=== PATIENT | female | born 1960 | race Hispanic/Latino ===

== ENCOUNTER → 2018-05-06 | Day surgery (SDC) | payer BC ==
[~2018-05-06] MED LIST: FENTANYL CITRATE/PF 100MCG/2 ML INJ ONE; HYOSCYAMINE SULFATE 0.5 MG/ML AMP ONE; LIDOCAINE HCL 2% LOCAL INJ 5 ML SDV VIAL INJ ONE; MIDAZOLAM HCL 2 MG/2 ML VIAL ONE; PROPOFOL IV EMULSION 10 MG/ML 50 ML VIAL ONE; SERTRALINE HCL100 MG PO
--- NOTE | 2018-05-06 16:44 | Operative Report ---
DATE OF PROCEDURE: May 06, 2018 REFERRING PHYSICIAN: Dr. Jeffry Otero. PROCEDURES PERFORMED: Esophagogastroduodenoscopy with biopsies and a colonoscopy with polypectomy. INDICATIONS FOR ESOPHAGOGASTRODUODENOSCOPY: Upper abdominal pain. INDICATIONS FOR COLONOSCOPY: Colorectal cancer screening. Lower abdominal pain. MEDICATION: Patient was done under MAC. Please see anesthesiologist's note. PROCEDURE: With patient in the left lateral decubitus position, the flexible fiberoptic Olympus gastroscope was introduced into the esophagus under direct visualization without any difficulty. There was some patchy erythema noted in distal esophagus. The GE junction was somewhat raised and friable and that was biopsied. The scope was then advanced with ease into the stomach traversing a small sliding hiatal hernia. The mucosa overlying the antrum and the body revealed some patchy erythema and low-grade edema and biopsies were obtained and sent to stain for H. pylori. Minute hyperplastic appearing gastric polyps were noted. Two were partially excised with cold biopsy forceps. The pylorus was of normal contour and shape. Was intubated with ease and the scope was advanced all the way to the 2nd portion of the duodenum. The scope was then withdrawn slowly. Mucosa overlying the duodenal bulb revealed some patchy intense erythema. The mucosa overlying the 2nd portion of the duodenum grossly appeared to be within normal limits. The scope was then withdrawn back into the stomach and retroflexed. Mucosa overlying the fundus and the cardia appeared to be within normal limits. The scope was then straightened out. It was subsequently withdrawn. Patient tolerated procedure well. IMPRESSION: 1. Distal esophagitis, mild. 2. Gastroesophageal junction somewhat raised and friable, biopsied. 3. Small sliding hiatal hernia. 4. Gastritis biopsied. Biopsy sent stain for H. pylori. 5. Gastric polyps, minute, hyperplastic appearing, partially excised with cold biopsy forceps. 6. Duodenitis. PLAN: Follow up histology. Initiate Protonix 40 mg 1 p.o. q.a.m. a.c. PROCEDURE: Patient was then turned around and after adequate lubrication of the anal canal a flexible fiberoptic Olympus colonoscope was inserted into the rectum with ease and advanced all the way to the cecum. Mucosa overlying the cecum, ascending colon appeared to be within normal limits. Diverticular disease was noted to involve the transverse colon as well as the left colon. Two polyps were snared, 1 polyp was hot biopsied from the sigmoid colon. Diverticular disease also was encountered, as mentioned, in the descending and the sigmoid. There was some patchy intense erythema noted in the sigmoid colon and biopsies were obtained. One polyp was hot biopsied from the rectum. The scope was then retroflexed into the distal rectum and small internal hemorrhoids were noted, none of which was actively bleeding. The scope was then straightened out. It was subsequently withdrawn. Patient tolerated the procedure well. IMPRESSION 1. Diverticulosis. 2. Sigmoid colon polyps times 3, two snared and one hot biopsied. 3. Sigmoiditis, mild. Biopsies obtained. 4. Rectal polyp, hot biopsied. 5. Internal hemorrhoids, none actively bleeding. PLAN: Followup histology. Initiated high-fiber, low-fat diet. Initiate high-fiber supplement. Start Bentyl 10 mg one p.o. t.i.d. VSL#3 one p.o. daily. The patient will need a followup colonoscopy in 3 years. Job#: [id number] cc:JEFFRY OTERO DO
== END | disposition home or self-care (01) ==
LOC: OR 10:51
PROVIDERS: ATTEND Internal Medicine Gastroenterology
DX: K29.70 Gastritis, unspecified, without bleeding (principal); D12.5 Benign neoplasm of sigmoid colon; K62.1 Rectal polyp; K31.7 Polyp of stomach and duodenum; K52.9 Noninfective gastroenteritis and colitis, unspecified; K29.80 Duodenitis without bleeding; K20.9 Esophagitis, unspecified; K22.8 Other specified diseases of esophagus; K44.9 Diaphragmatic hernia without obstruction or gangrene; K57.30 Diverticulosis of large intestine without perforation or abscess without bleeding; K64.8 Other hemorrhoids; R03.0 Elevated blood-pressure reading, without diagnosis of hypertension; F32.9 Major depressive disorder, single episode, unspecified; F41.9 Anxiety disorder, unspecified; Z01.810 Encounter for preprocedural cardiovascular examination; Z68.38 Body mass index [BMI] 38.0-38.9, adult; Z80.0 Family history of malignant neoplasm of digestive organs
CPT/HCPCS: 43239; 45380; 45384; 45385; 93005; J1980; J2001; J2250; 45378

== ENCOUNTER → 2018-09-05 | Outpatient (CLI) | payer BC ==
[~2018-09-05] MED LIST changes: -FENTANYL CITRATE/PF 100MCG/2 ML INJ ONE; -HYOSCYAMINE SULFATE 0.5 MG/ML AMP ONE; -LIDOCAINE HCL 2% LOCAL INJ 5 ML SDV VIAL INJ ONE; -MIDAZOLAM HCL 2 MG/2 ML VIAL ONE; -PROPOFOL IV EMULSION 10 MG/ML 50 ML VIAL ONE
--- NOTE | 2018-09-07 08:32 | Diagnostic Imaging Report ---
#[id number] - MGSCRBIL #BILATERAL DIGITAL SCREENING MAMMOGRAM WITH CAD: 09/05/2018 CLINICAL: Routine screening. Comparison is made to exams dated: 07/29/2017 mammogram and 08/02/2015 mammogram - [facility]. Current study contains 4 films. There are scattered fibroglandular elements in both breasts. Current study was also evaluated with a Computer Aided Detection (CAD) system. There are benign nodules in both breasts. There also is a benign calcification in the right breast. Additionally there is a biopsy clip in the right breast. No significant masses, calcifications, or other findings are seen in either breast. There has been no significant interval change. IMPRESSION: BENIGN There is no mammographic evidence of malignancy. A 1 year screening mammogram is recommended. The patient will be notified by letter of the results. Luis M last/julia:09/06/2018 15:38:16 Sr. Manager Corporate Communications: Lidia SOTO(R)(M), [facility] letter sent: Compared to Prior B9 Mammogram BI-RADS: 2 Benign
== END ==
LOC: MAMMO 16:14
PROVIDERS: ATTEND Surgery
DX: Z12.31 Encounter for screening mammogram for malignant neoplasm of breast (principal)
CPT/HCPCS: 77067

== ENCOUNTER 2018-10-29 19:43 | Inpatient (IN) | payer BC ==
[~2018-10-29] VITALS: Ht 154.9 cm; Wt 93.9 kg
[2018-10-29] MEDS ORDERED: ACETAMINOPHEN 1000 MG/100 ML IV STA (20:12)
[2018-10-29] MEDS ORDERED: SODIUM CHLORIDE 0.9% 1000ML 1,000 ML IV ONE (20:15)
[2018-10-29] MEDS ORDERED: DIATRIZOATE MEGL/DIATRIZOA SOD 30 ML BTL PO ONE (20:22)
[2018-10-29 20:48] LABS: BASOPHILS # (AUTO) 0.1 (0.0-0.1); BASOPHILS % 0.4 % (0.0-1.0); EOSINOPHILS # (AUTO) 0.1 (0.0-0.4); EOSINOPHILS % 0.7 % (0.0-6.0); HEMOGLOBIN 12.6 g/dL (12.0-16.0); LYMPHOCYTES # (AUTO) 3.8 (1.0-3.2); MEAN CORPUSCULAR HEMOGLOBIN 30.3 pg (28-32); MEAN CORPUSCULAR HGB CONC 34.1 g/dL (31-35); MEAN CORPUSCULAR VOLUME 88.9 fL (81-99); MONOCYTES # (AUTO) 0.8 (0.2-0.8); MONOCYTES % 3.9 % (4.4-11.3); NEUTROPHILS # (AUTO) 16.3 (2.1-6.9); NEUTROPHILS % 76.6 % (38.7-80.0); PLATELET COUNT 462 x10e3/uL (140-360); RED BLOOD COUNT 4.16 x10e6/uL (3.6-5.1); RED CELL DISTRIBUTION WIDTH 13.2 % (11.7-14.4)
[2018-10-29 21:01] LABS: LEUKOCYTE ESTERASE ,URINE TRACE (NEGATIVE)
[2018-10-29 21:02] LABS: BILIRUBIN,URINE NEGATIVE (NEGATIVE); KETONES,URINE NEGATIVE (NEGATIVE); NITRITE,URINE NEGATIVE (NEGATIVE); PROTEIN,URINE DIPSTICK TRACE (NEGATIVE); URINE UROBILINOGEN 0.2 mg/dL (0.2 - 1)
[2018-10-29] MEDS ORDERED: METRONIDAZOLE 500MG/NS 100ML 100 ML IV STA (21:07)
[2018-10-29] MEDS ORDERED: LEVOFLOXACIN 500MG/D5W 100ML 100 ML IV STA (21:07)
[2018-10-29 21:08] LABS: ALANINE AMINOTRANSFERASE 18 IU/L (0-55); ALBUMIN 3.5 g/dL (3.5-5.0); ALBUMIN/GLOBULIN RATIO 0.8 (0.8-2.0); ALKALINE PHOSPHATASE 162 IU/L (40-150); ANION GAP 13.4 mmol/L (8-16); BACTERIA,URINE MANY /HPF; BLOOD UREA NITROGEN 13 mg/dL (7-26); BUN/CREATININE RATIO 14 (6-25); CARBON DIOXIDE 25 mmol/L (22-29); CHLORIDE 98 mmol/L (98-107); CLARITY,URINE HAZY (CLEAR); COLOR,URINE YELLOW (YELLOW); CREATININE, SERUM 0.92 mg/dL (0.57-1.11); EPITHELIAL CELLS,URINE MANY /LPF; EST GLOMERULAR FILTRATION RATE > 60 ML/MIN (60-); GLUCOSE 127 mg/dL (74-118); MUCUS,URINE MANY (RARE); POTASSIUM 3.4 mmol/L (3.5-5.1); RBC,URINE 21-50 /HPF (0-5); SODIUM 133 mmol/L (136-145); WBC,URINE (MAN) 0-5 /HPF (0-5)
[2018-10-29] MEDS ORDERED: ONDANSETRON HCL INJ 2MG/ML 2ML 2 MG/ML VIAL IV STA (21:28)
[2018-10-29] MEDS ORDERED: MORPHINE SULFATE INJ 4 MG/ML INJ 1ML IV ONE (21:30)
[2018-10-29] MEDS ORDERED: SODIUM CHLORIDE 0.9% 50ML 50 ML ONE (22:06)
[2018-10-29] MEDS ORDERED: IOPAMIDOL 370 MG/ML 200 ML INFUS..BTL INJ ONE (22:06)
--- NOTE | 2018-10-29 22:37 | Diagnostic Imaging Report ---
EXAM: CT ABDOMEN AND PELVIS with IV CONTRAST DATE: 10/29/2018 8:12 PM Time stamp on Exam: 2159 hours INDICATION: Abdominal pain, fever COMPARISON: None TECHNIQUE: The abdomen and pelvis were scanned using a multidetector helical scanner. Coronal and sagittal reformations were obtained. Dose modulation, iterative reconstruction, and/or weight based adjustment of the mA/kV was utilized to reduce the radiation dose to as low as reasonably achievable. Routine protocol performed. IV Contrast: 100 cc Isovue-370 Oral Contrast: Gastrografin FINDINGS: LOWER THORAX: No consolidations LIVER: No masses BILIARY: The gallbladder is unremarkable. No ductal dilation. SPLEEN: No masses PANCREAS: No masses ADRENALS: No nodules KIDNEYS: Symmetric perfusion. No enhancing masses. No hydronephrosis. GI TRACT: Marked sigmoid colon diverticulosis with focal wall thickening adjacent to the left adnexal mass and uterine fundus. Sigmoid colon diverticulosis. Normal appendix. VESSELS: Unremarkable PERITONEUM/RETROPERITONEUM: No free air or fluid LYMPH NODES: Multiple pelvic and retroperitoneal lymph nodes that are predominantly subcentimeter, however there is a larger lymph node along the right external iliac chain measuring 1.7 cm in transverse diameter (series 2, image 56). REPRODUCTIVE ORGANS: Within the left adnexa there is a 7.6 x 3.6 cm multiloculated cystic mass with foci of air. Abnormal thickening of the endometrium to 4.5 cm containing fluid and air. BLADDER: Unremarkable SOFT TISSUES: Unremarkable BONES: No suspicious bone lesions. IMPRESSION: Within the left adnexa there is a 7.6 x 3.6 m multiloculated cystic mass containing air. The endometrium is thickened to 4.5 cm and contains fluid and air. Abutting both the left adnexal mass and the fundus of the uterus is a thickened area of sigmoid colon with severe diverticulosis. Adjacent left pelvic adenopathy. With the provided history of diverticulitis last July, the above findings most likely represent complication of sigmoid colon diverticulitis with fistulization/abscess involving the left ovary and uterus. However, without prior images for comparison, a primary left ovarian or endometrial tumor is in the differential. Signed by: Dr. Berenice Walker M.D. on 10/29/2018 10:34 PM
[2018-10-29] MEDS ORDERED: CEFTRIAXONE SOD 2 GM/NS 100 ML 100 ML IV SCH ×2 (23:15)
[2018-10-29] MEDS ORDERED: D5.45%NS/KCL 20MEQ 1,000 ML IV SCH (23:18)
[2018-10-29] MEDS ORDERED: MORPHINE SULFATE 2 MG/ML SYR 1ML IV PRN (23:30)
[2018-10-29] MEDS ORDERED: ONDANSETRON HCL INJ 2MG/ML 2ML 2 MG/ML VIAL IV PRN (23:30)
[2018-10-29] MEDS ORDERED: ACETAMINOPHEN 1000 MG/100 ML IV PRN (23:30)
[2018-10-29] MEDS ORDERED: LACTATED RINGER'S 1,000 ML INJ SCH (23:30)
[2018-10-29] MEDS ORDERED: CEFTRIAXONE SOD 2 GM VIAL ONE (23:53)
[2018-10-29] MEDS ORDERED: SODIUM CHLORIDE 0.9% 100 ML ONE (23:56)
[2018-10-30] MEDS ORDERED: METRONIDAZOLE 500MG/NS 100ML 100 ML IV SCH
[2018-10-30] MEDS: CEFTRIAXONE SOD 2 GM/NS 100 ML 100 ML IV SCH ×2 (00:05→23:30)
[2018-10-30] MEDS: METRONIDAZOLE 500MG/NS 100ML IV SCH ×2 (06:29→14:18)
--- NOTE | 2018-10-30 07:05 | NUR ---
REPORT RECEIVED FROM Travis SABILLON RN.
[2018-10-30] MEDS ORDERED: PANTOPRAZOLE SO40 MG PO (07:08)
[2018-10-30] MEDS ORDERED: DICYCLOMINE HCL10 MG PO (07:08)
[2018-10-30 07:15] LABS: BASOPHILS # (AUTO) 0.1 (0.0-0.1); BASOPHILS % 0.3 % (0.0-1.0); EOSINOPHILS # (AUTO) 0.2 (0.0-0.4); HEMATOCRIT 30.5 % (34.2-44.1); LYMPHOCYTES % 23.4 % (18.0-39.1); MEAN CORPUSCULAR HEMOGLOBIN 31.6 pg (28-32); MEAN CORPUSCULAR HGB CONC 36.1 g/dL (31-35); MEAN CORPUSCULAR VOLUME 87.6 fL (81-99); MONOCYTES # (AUTO) 0.9 (0.2-0.8); NEUTROPHILS % 69.8 % (38.7-80.0); PLATELET COUNT 332 x10e3/uL (140-360); RED BLOOD COUNT 3.48 x10e6/uL (3.6-5.1); RED CELL DISTRIBUTION WIDTH 13.4 % (11.7-14.4)
--- NOTE | 2018-10-30 07:36 | NUR ---
UNABLE TO INITIATE SCD/VTE PROPHYLAXIS, NO MACHINE AVAILABLE
[2018-10-30 07:37] LABS: ALANINE AMINOTRANSFERASE 15 IU/L (0-55); ALBUMIN 2.9 g/dL (3.5-5.0); ALBUMIN/GLOBULIN RATIO 0.7 (0.8-2.0); ALKALINE PHOSPHATASE 127 IU/L (40-150); ANION GAP 10.8 mmol/L (8-16); BLOOD UREA NITROGEN 9 mg/dL (7-26); BUN/CREATININE RATIO 13 (6-25); CALCIUM 8.7 mg/dL (8.4-10.2); CARBON DIOXIDE 25 mmol/L (22-29); CHLORIDE 105 mmol/L (98-107); CREATININE, SERUM 0.71 mg/dL (0.57-1.11); EST GLOMERULAR FILTRATION RATE > 60 ML/MIN (60-); GLUCOSE 109 mg/dL (74-118); POTASSIUM 3.8 mmol/L (3.5-5.1); SODIUM 137 mmol/L (136-145)
--- NOTE | 2018-10-30 08:00 | NUR ---
DR. BROOKS AT BEDSIDE.
--- NOTE | 2018-10-30 08:30 | NUR ---
BLE KNEE HIGH SCD'S INITIATED
--- NOTE | 2018-10-30 09:06 | Consultation ---
DATE OF CONSULTATION: October 30, 2018 REASON FOR CONSULTATION: Diverticulitis. The patient is a very pleasant, 58-year-old female who developed yesterday severe pain located in the lower abdomen, mainly in the area of the left lower quadrant where it has remained localized. This is associated with fever. The pain does not radiate. She denies any rectal bleeding, hematochezia. She had a colonoscopy last year which was a screening type of colonoscopy. From what she can tell, there was no evidence of malignancy or any other problems. In the past, she has a known case of diverticulosis with previous diverticular attacks that have not required hospitalization. This is the 1st hospitalization. 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 There is a pelvic abscess that involves, also, the left ovary. Since the performance of the CT scan was done with oral contrast, she has noted drainage of a purulent liquid coming from her vagina. Previous surgeries include an open heart procedure for repair of an atrioseptal defect repaired successfully with autogenous tissue. The patient since the surgery denies any chest pain or shortness of breath. She physically is doing well. PAST MEDICAL HISTORY: Unremarkable. ALLERGIES: SHE HAS NO KNOWN ALLERGIES. MEDICATIONS: She is currently taking no medications. SOCIAL HISTORY: She does not drink or smoke. REVIEW OF SYSTEMS: Significant for what has already been stated. PHYSICAL EXAMINATION GENERAL: A 58-year-old female who complains of left lower quadrant pain. She lays quietly in bed. VITALS: Her admission temperature was 101, now 98.4, with stable vital signs. HEAD, EYES, EARS, NOSE AND THROAT: Examination reveals no acute process. LUNGS: Clear. HEART: Regular sinus rhythm. ABDOMEN: Tenderness in the left lower quadrant with deep rebound. Bowel sounds are present. There is also some mild tenderness on the right lower side. The upper quadrants are soft. GENITOURINARY: Examination of the vaginal introitus reveals purulent discharge coming from the vagina. RECTAL: Examination reveals an empty vault, no blood. EXTREMITIES: No clubbing, cyanosis or edema. NEUROLOGIC: Examination is nonfocal. LABS: Admission WBC is 21,000. Admission chemistries are unremarkable. Admission urinalysis revealed 3+ blood. The CT scan results have already been discussed. 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 PLAN: The plan is to continue hydration and intravenous antibiotics, then proceed with exploratory laparotomy and colon resection. Most likely, she will need a colostomy. Dr. Armstrong from gynecology has been consulted and will be seeing the patient from a gynecological point of view. At this point, I believe that the main problem here is a general surgical one, namely secondary involvement of the uterus by the inflammatory process. We will have the patient evaluated by internal medicine and then if everybody is in agreement will proceed with planned surgery tomorrow. This has been discussed in detail with the patient and her , and they all agree with the plan. ROBSON BROOKS MD Job#: [id number]
--- NOTE | 2018-10-30 09:20 | Diagnostic Imaging Report ---
EXAMINATION: PA and lateral views of the chest. COMPARISON: None CLINICAL HISTORY: History of diverticulitis, open heart surgery DISCUSSION: The lungs are well-inflated and without focal consolidation, pleural effusion, or pneumothorax. Sternotomy wires and mediastinal surgical clips. Normal heart size. No overt pulmonary edema. No acute osseous abnormality. Opacified bowel is noted in the upper abdomen on the lateral radiograph, from enteric contrast administration for prior CT examination 10/29/2018. IMPRESSION: Postsurgical mediastinum without acute cardiopulmonary abnormality. Signed by: Dr. Kavon Mcclendon M.D. on 10/30/2018 9:17 AM
--- NOTE | 2018-10-30 09:54 | NUR ---
Britton martinez in [facility] - 10/30/18 at 0956 by HARDIK PT TRANSFERRED FROM STRETCHER TO HOSPITAL BED, PT TOLERATED WITHOUT DIFFICULTY
[2018-10-30] MEDS: D5.45%NS/KCL 20MEQ 1,000 ML IV SCH ×2 (10:37→17:44)
--- NOTE | 2018-10-30 12:00 | NUR ---
PT TO THE FLOOR FROM ER.
[2018-10-30 12:25] VITALS: BP 120/67
[2018-10-30 12:30] VITALS: BP 120/67
[2018-10-30 15:50] VITALS: BP 125/78
[2018-10-30 20:00] VITALS: BP_SYST 123; BP_SYST 125; BP_DIAS 58; BP_DIAS 78
--- NOTE | 2018-10-30 20:00 | NUR ---
INITIAL ASSESSMENTS COMPLETE, PT IN BED, CALL LIGHT IN REACH, NO PAIN NOTED, NO DISTRESS NOTED, FAMILY AT BEDSIDE, PT STATE HAS DRAINAGE FROM VAGINAL FISTULA WHEN UP TO BATHROOM, YELLOWISH DISCHARGE, TOLD TO CALL FOR NEEDS, VS STABLE
[2018-10-30] MEDS ORDERED: MORPHINE SULFATE INJ 4 MG/ML INJ 1ML IV PRN (21:00)
[2018-10-30] MEDS: METRONIDAZOLE 500MG/NS 100ML 200 ML IV SCH (21:35)
--- NOTE | 2018-10-30 23:35 | Consultation ---
DATE OF CONSULTATION: October 30, 2018 HPI: Thank you very much for asking me to see this 58-year-old who has been complaining of left lower quadrant pain intermittently for the last month or so. However, yesterday, she noticed acute severe crampy pain in the left lower quadrant with no triggering or relieving factor and not referred to anywhere else in her body. She denied any nausea or vomiting and no bowel movement problems. Her last bowel movement actually was yesterday morning. She has been complaining of vaginal brownish discharge since yesterday; however, she had NovaSure 8 years ago and has not had any vaginal bleeding since. PAST MEDICAL HISTORY: Significant for diverticulitis and diverticulosis. DRUG ALLERGIES: NONE KNOWN. MEDICATIONS: She is currently on medication for diverticulitis including diet and oral medication since July. SOCIAL HISTORY: No social history of interest. FAMILY HISTORY: No family history of interest. REVIEW OF SYSTEMS: She denies any cardiovascular, respiratory, musculoskeletal, hematological, dermatological or psychiatric problems. PHYSICAL EXAMINATION VITAL SIGNS: Stable. CHEST: Clear to auscultation. HEART: Regular rate and rhythm. ABDOMEN: Soft and nontender. ASSESSMENT: Diverticulitis with possible colovaginal or colouterine fistula and possible involvement of the left ovary. PLAN: Patient will be admitted to the hospital for hydration and intravenous antibiotics. General surgery has seen the patient and will proceed with colon resection and colostomy as discussed between the general surgeon and the patient. I have discussed the case with general surgeon as well as the urologist and would proceed with placing the stents before doing the laparotomy tomorrow. Also, I would be available for hysterectomy, bilateral salpingo-oophorectomy in case needed during the exploratory laparotomy by the general surgeon. Once again, thank you very much for asking me to see this patient. Please do not hesitate to call me if I can be of any further help in the future. Job#: [id number] CF cc:JESS POTTER MD
[2018-10-31] VITALS (7 sets, daily range): BP systolic 109–133; BP diastolic 57–63
[2018-10-31] MEDS ORDERED: VSL#3 CAPSULE1 EACH PO (05:32)
[2018-10-31] MEDS: METRONIDAZOLE 500MG/NS 100ML 200 ML IV SCH ×3 (05:34→21:56)
--- NOTE | 2018-10-31 05:48 | NUR ---
PT UP TO SHOWER WITH ASSIST FROM FAMILY, VS STABLE
[2018-10-31] MEDS: D5.45%NS/KCL 20MEQ 1,000 ML IV SCH ×2 (08:30→14:35)
[2018-10-31] MEDS ORDERED: PNEUMOCOCCAL VACCINE POLYVALENT 23 MCG/0.5 ML VIAL IM SCH (09:00)
[2018-10-31] MEDS ORDERED: INFLUENZA VIRUS VAC SPLIT INJ 0.5 ML SYR IM SCH (09:00)
[2018-10-31] MEDS ORDERED: IOPAMIDOL 610MG/1ML 300 MG/ML VIAL IV ONE (09:22)
[2018-10-31] MEDS ORDERED: LEVOFLOXACIN 500MG/D5W 100ML 100 ML IV ONE (10:46)
--- NOTE | 2018-10-31 13:53 | Consultation ---
DATE OF CONSULTATION: October 31, 2018 INITIAL VISIT SERVICE: Urology. ATTENDING PHYSICIAN: Dr. Troy HISTORY OF PRESENT ILLNESS: This is a 58-year-old patient who presented with what appeared to be perforated diverticulum and a pelvic abscess. The patient is planned to have exploratory surgery and possible colostomy by general surgery. PAST MEDICAL HISTORY: Significant for diverticular disease of the colon. ALLERGIES TO MEDICATIONS: None. MEDICATIONS: See MAR. SOCIAL HISTORY: No use of alcohol, illicit drugs or tobacco. FAMILY HISTORY: Noncontributory. REVIEW OF SYSTEMS: Twelve systems reviewed. Abdominal pain in the left lower quadrant for several days. As far as is concerned, no significant history. PHYSICAL EXAMINATION GENERAL: Patient is alert and oriented. VITALS: Blood pressure 135/80. Pulse 88. Temperature 98.7. Respirations 18. HEAD: Symmetric. Eyes: Normal movement. NECK: No JVD. CHEST: Clear. HEART: Regular. ABDOMEN: Soft. There is some lower abdominal tenderness. EXTERNAL GENITALIA: Unremarkable. LOWER EXTREMITIES: Moves all. LABORATORY DATA: A CT scan of the abdomen and pelvis that was done suggests a multiloculated cystic mass in the adnexa on the left side. Endometrium is also thickened. Severe diverticular disease, possibly diverticulitis and abscess. White count 21.22, hemoglobin within normal limits. Urinalysis 21-30 white blood cells and a few red blood cells per high power field. IMPRESSION 1. Diverticular disease of the colon. 2. Possible abscess. 3. Pelvic mass. PLAN: The patient will need cystoscopy and placement of ureteral catheters to assist in the open surgery. Job#: [id number]
--- NOTE | 2018-10-31 13:59 | Operative Report ---
DATE OF PROCEDURE: October 31, 2018 SERVICE: Urology. ATTENDING PHYSICIAN: Dr. Sangeetha Troy PREOPERATIVE DIAGNOSES 1. Diverticulitis of the colon. 2. Pelvic mass. 3. Possible abscess. POSTOPERATIVE DIAGNOSIS: 1. Diverticulitis of the colon. 2. Pelvic mass. 3. Possible abscess. OPERATION PERFORMED 1. Cystoscopy, bilateral retrograde pyelograms under fluoroscopic control. 2. Placement of ureteral catheters bilaterally. 3. Pelvic examination under anesthesia. 4. Interpretation of x-ray done by me. 5. Supervision of fluoroscopy done by me. AGRONOMY INSTRUCTOR: None. ANESTHESIA: General. CLINICAL INDICATION NOTE: This is a 68-year-old patient who has diverticular disease of the colon and possible abscess as well as pelvic mass. She was brought for exploration by surgery. I am planning to place ureteral catheters and do retrograde. Procedure was discussed with the patient and family. Potential benefits explained as well as complications. DESCRIPTION OF PROCEDURE AND FINDINGS: After proper level of anesthesia was achieved, the patient was placed in lithotomy position, prepped and draped in a sterile fashion. Urethra inspected and is unremarkable. Bladder neck is normal. Bladder mucosa is normal. No tumor or foreign body is identified. Open-ended catheter was inserted to the right side. Retrograde pyelograms reveal an unremarkable upper collecting system. Following this, open-ended catheter was introduced and inserted all the way to the kidney. The same procedure was performed on the left side with same findings. Following this, a Navarrete catheter, 20 Guatemalan with 10 mL, was inserted to the bladder, and both ureteral catheters were inserted into the Navarrete. A pelvic exam was done under anesthesia. There is some fullness in the pelvis, otherwise unremarkable. The patient tolerated the procedure well. Job#: [id number]
[2018-10-31] MEDS ORDERED: HYDROMORPHONE 2MG/ML 2 MG/ML ML ONE (15:38)
[2018-10-31] MEDS: SODIUM CHLORIDE 0.9% 250ML IRRIG IR SCH ×2 (16:00→20:21)
[2018-10-31] MEDS ORDERED: ACETAMINOPHEN 1000 MG/100 ML IV PRN (16:00)
[2018-10-31] MEDS ORDERED: NALOXONE HCL INJ 0.4 MG/ML AMP IV PRN (16:00)
[2018-10-31] MEDS ORDERED: KETOROLAC TROMETHAMINE 30 MG/ML VIAL IV PRN (16:00)
--- NOTE | 2018-10-31 16:10 | Operative Report ---
DATE OF PROCEDURE: October 31, 2018 PREOPERATIVE DIAGNOSIS: Colouterine fistula. POSTOPERATIVE DIAGNOSIS: Tubo-ovarian abscess. ORNAMENTAL IRON WORKER HELPER: Dr. Vivek Meehan. COMPLICATIONS: None. ESTIMATED BLOOD LOSS: Minimal. PROCEDURE: The patient was taken to the OR by Dr. Vivek Meehan, and Dr. Rosalio Colud has already placed bilateral ureteric stents per my request and consult the day before. I was asked to come to the hospital for intraoperative consultation due to involvement of the left tube and ovary with the colon and abscess formation. I attended the surgery at that time. Dr. Meehan has already performed his partial colon resection, and there were bilateral ureteric stents. Right tube was not affected, absent of the right ovary, and then the left ovary and tube were forming a large abscess about 7 cm attached to the pelvic floor as well as the left side of the pelvis. The blood supply to the left adnexa was already compromised by Dr. Meehan. Using a vessel occlusive cutting device, the adnexa was dissected off the left side of the uterus, and multiple bites were made between the adnexa and the pelvic side wall, and the pelvis was freed. At this stage, pus was coming out of the tube and ovary, and tubo-ovarian abscess cultures were sampled and sent to the lab. A large pedicle was noted at the bottom of the left adnexa, and right-angle Zeppelin clamps were applied at the bottom of the left adnexa. The adnexa was freed and sent to pathology. The pedicle was secured with a transfixion suture of Vicryl 0. Hemostasis was found to be adequate apart from slight oozing from the left side of the uterus, and accordingly multiple interrupted Vicryl 0 sutures were taken to achieve hemostasis. Suction irrigation of the peritoneal cavity several times was performed. At that stage, the ureter was inspected and was found to be intact on the left side of the pelvis with a ureteric stent in place. Dr. Meehan at this stage took over to perform the colostomy and close the abdomen. Also, the patient was tolerating the procedure well. Lap, instrument and needle count was correct x2 at the end of my part of the procedure. Job#: [id number] EV cc:JASMEET OTERO DO cc:ROGER POTTER MD
[2018-10-31] MEDS: HYDROMORPHONE 0.2MG/ML-SOD CHL 30ML PCA SYRINGE IV PRN (16:14)
--- NOTE | 2018-10-31 16:16 | Operative Report ---
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 PROCEDURES PERFORMED: 1. Bilateral stent placement by Dr. Rosalio Cloud. 2. Exploratory laparotomy and Mark's procedure by Dr. Helen Meehan. 3. Left salpingo-oophorectomy by Dr. Armstrong from gynecology. The urological part of the procedure as well as the gynecological part of the procedure will be dictated by Dr. Rosalio Cloud and Dr. Armstrong, and I will limit myself to the general surgery part of it. WAREHOUSE MANAGER: None. ANESTHESIA: General. ESTIMATED BLOOD LOSS: About 100 mL. DRAINS: Two 10-mm flat Iván-Justin drains, one to drain the pelvis and the other one to drain the wound. COMPLICATIONS: None. SPECIMEN: Left adnexa with abscess. INDICATIONS: AND FINDINGS: This is a very pleasant 58-year-old female with a history of diverticulosis and several attacks in the past who now is admitted to the hospital with sepsis. She was found to have a left tubo-ovarian abscess as well as evidence of air-fluid levels in the uterus, all consistent with colouterine and/or colotubal fistula secondary to the diverticulitis. The patient was rehydrated and treated with antibiotics and then underwent today an exploratory laparotomy and Mark's procedure. INTRAOPERATIVE FINDINGS: The patient had extensive diverticulosis of the sigmoid colon with a segment of the sigmoid colon that was stuck to the fundus of the uterus. There was a left tubo-ovarian abscess. After I the colon from the uterus, I did not see any obvious fistula or uterine defects. The segment of the colon that was involved with the diverticulosis and diverticulitis was resected, and a colostomy was then performed in the left side of the abdomen. DESCRIPTION OF PROCEDURE: With the patient lying on the operative table in the supine position after administration of general endotracheal anesthesia, after she had bilateral stent placement by Dr. Rosalio Cloud, she was prepped and draped for exploratory laparotomy. The patient had been previously marked on the left side of the abdomen for colostomy placement along the rectus sheath. The abdomen was entered via a midline incision. Then we identified at this point the sigmoid colon that was stuck to the uterus, and then we mobilized the left colon and sigmoid colon along the white line of Toldt. Then we transected the colon in the area of the distal sigmoid colon with the WARNER stapler. Then we took the blood supply to the involved segment of the colon, creating the fistula with the Enseal instrument and 2-0 Vicryl for the larger blood vessels to reinforce the closure until we detached the colon as we proceeded distally. Then we came to a part of the colon that was soft and pliable in the upper rectum and distal sigmoid colon. Then we transected that area also and then completed the resection. At this point, we then transected the round ligament and the blood supply to the left ovary. Then we consulted intraoperatively with JUNIOR SOFTWARE DEVELOPER who completed the left salpingo-oophorectomy. At all times we were palpating both the right and left ureters, which were very carefully preserved throughout the procedure. Once Dr. Armstrong completed the left salpingo-oophorectomy and cultures and sensitivities were taken of the pus that was seen coming out of the tube on the left, we went ahead and copiously irrigated the abdominal cavity. Then we made a cruciate incision along the rectus sheath where it had previously been marked preoperatively with the patient standing up, clearly avoiding a skin crease that was in the lower part of the abdomen. We brought out the colon through the cruciate incision that was made in the rectus sheath. Then we left it in the colostomy for further maturation, and it was partially clamped with a Scotty clamp. After we copiously irrigated the abdominal cavity until the effluent was clear and ascertaining there was no bleeding, we drained the abdominal cavity with a 10-mm flat Iván-Justin drain to drain the left pelvis and cul-de-sac and brought it out through a stab wound in the left lower quadrant and secured it there with 2-0 silk and connected to self-suction. After verification that the sponge and instrument counts were correct, we closed the midline incision in 2 layers using #1 Vicryl for the posterior sheath and peritoneum and a running #1 PDS for the midline anterior fascia. After we did that, we proceeded to drain the wound with a 10-mm flat Iván-Justin drain that was cut to appropriate length. The incision was just up to the level of the umbilicus. Then we closed the skin with a combination of 2-0 silk and sonal and brought it out through a stab wound inferior to the midline and secured it there with 2-0 silk also. We then closed the skin with sonal and isolated the midline incision from the colostomy site. The colostomy was matured with four 3-0 Vicryl stitches that incorporated the mucosa, serosa and subcuticular plane. Then the periphery of the colostomy was closed using mucosa to subcuticular plane. The colostomy was viable and patent. We then placed a 1-3/4 inch colostomy bag. A sterile dressing was applied. The patient tolerated the procedure well and was taken to the recovery room in stable condition. Job#: [id number]
--- NOTE | 2018-10-31 16:45 | NUR ---
PT BACK TO THE UNIT FROM PACU. FAMILY AT BEDSIDE. PT TRANSFER TO BED. PT TOLERATED. DANCE TEACHER PUMP IN PLACE.
[2018-10-31] MEDS: SODIUM CHLORIDE 0.9% 1000ML 1,000 ML IV SCH (16:54)
[2018-10-31] MEDS ORDERED: ONDANSETRON HCL INJ 2MG/ML 2ML 2 MG/ML VIAL ONE (17:39)
[2018-10-31] MEDS ORDERED: PROPOFOL IV EMULSION 10 MG/ML 20 ML VIAL ONE (17:39)
[2018-10-31] MEDS ORDERED: SEVOFLURANE INHAL SOLN 250 ML PEN BTL ONE (17:39)
[2018-10-31] MEDS ORDERED: ACETAMINOPHEN 1000 MG/100 ML IV ONE (17:39)
[2018-10-31] MEDS ORDERED: LIDOCAINE HCL 2% LOCAL INJ 5 ML SDV VIAL INJ ONE (17:39)
[2018-10-31] MEDS ORDERED: ROCURONIUM BROMIDE 10 MG/ML 5ML VIAL ONE (17:39)
[2018-10-31] MEDS ORDERED: DEXAMETHASONE SOD PHOS INJ 4 MG/ML VIAL ONE (17:39)
[2018-10-31] MEDS ORDERED: MORPHINE SULFATE INJ 10 MG/ML ONE (18:05)
[2018-10-31] MEDS ORDERED: MIDAZOLAM HCL 2 MG/2 ML VIAL ONE (18:05)
[2018-10-31] MEDS ORDERED: FENTANYL CITRATE/PF 100MCG/2 ML INJ ONE (18:05)
[2018-11-01] VITALS (17 sets, daily range): BP systolic 85–117; BP diastolic 44–93
[2018-11-01] MEDS: D5.45%NS/KCL 20MEQ 1,000 ML IV SCH (00:35)
[2018-11-01] MEDS: CEFTRIAXONE SOD 2 GM/NS 100 ML 100 ML IV SCH ×2 (01:05→23:22)
[2018-11-01] MEDS: SODIUM CHLORIDE 0.9% 250ML IRRIG IR SCH ×6 (01:05→20:46)
[2018-11-01] MEDS: METRONIDAZOLE 500MG/NS 100ML 200 ML IV SCH ×3 (05:29→23:21)
[2018-11-01] MEDS: SODIUM CHLORIDE 0.9% 1000ML 1,000 ML IV SCH ×4 (05:29→20:42)
[2018-11-01] MEDS: HYDROMORPHONE 0.2MG/ML-SOD CHL 30ML PCA SYRINGE IV PRN ×2 (05:54→14:43)
[2018-11-01 06:14] LABS: BASOPHILS # (AUTO) 0.1 (0.0-0.1); BASOPHILS % 0.3 % (0.0-1.0); EOSINOPHILS # (AUTO) 0.1 (0.0-0.4); EOSINOPHILS % 0.6 % (0.0-6.0); HEMATOCRIT 35.2 % (34.2-44.1); HEMOGLOBIN 11.3 g/dL (12.0-16.0); LYMPHOCYTES # (AUTO) 2.8 (1.0-3.2); LYMPHOCYTES % 18.8 % (18.0-39.1); MEAN CORPUSCULAR HEMOGLOBIN 29.3 pg (28-32); MEAN CORPUSCULAR HGB CONC 32.1 g/dL (31-35); MEAN CORPUSCULAR VOLUME 91.2 fL (81-99); MONOCYTES # (AUTO) 0.8 (0.2-0.8); MONOCYTES % 5.5 % (4.4-11.3); NEUTROPHILS % 74.3 % (38.7-80.0); PLATELET COUNT 412 x10e3/uL (140-360); RED BLOOD COUNT 3.86 x10e6/uL (3.6-5.1); RED CELL DISTRIBUTION WIDTH 13.4 % (11.7-14.4)
[2018-11-01 06:29] LABS: ANION GAP 12.7 mmol/L (8-16); BLOOD UREA NITROGEN 7 mg/dL (7-26); BUN/CREATININE RATIO 10 (6-25); CALCIUM 8.4 mg/dL (8.4-10.2); CARBON DIOXIDE 24 mmol/L (22-29); CHLORIDE 102 mmol/L (98-107); CREATININE, SERUM 0.69 mg/dL (0.57-1.11); EST GLOMERULAR FILTRATION RATE > 60 ML/MIN (60-); GLUCOSE 113 mg/dL (74-118); POTASSIUM 3.7 mmol/L (3.5-5.1); SODIUM 135 mmol/L (136-145)
--- NOTE | 2018-11-01 08:32 | NUR ---
MD Zoey BROOKS INTO SEE PT, DISCUSSED POC
--- NOTE | 2018-11-01 08:48 | NUR ---
MD Moses RIZZO INTO SEE PT, DISCUSSED POC
[2018-11-01] MEDS: PANTOPRAZOLE 40 MG 10ML VIAL IV SCH (09:45)
--- NOTE | 2018-11-01 11:36 | NUR ---
SPOKE WITH MD Micheline POTTER, MADE AWARE THAT PER TELEMETRY PT IS RUNNING "NSR TO AFIB 173 BPM, ORDERS NOTED
--- NOTE | 2018-11-01 11:56 | NUR ---
MD Micheline POTTER INTO SEE PT, AWARE OF EKG RESULTS OF AFIB RVR 151-174BPM, ORDERS NOTED TO CONSULT MD ESPINOZA, MOTH PROOFER TELEPHONED MD ESPINOZA, AWAITING CALL BACK
--- NOTE | 2018-11-01 12:10 | NUR ---
SPOKE WITH MD ESPINOZA, MADE AWARE OF EKG AFIB RVR 160'S, ORDERS NOTED, NOTIFIED CHARGE THAT PT NEEDS TO BE TRANSFERRED TO ICU, AWAITING BEDS
[2018-11-01] MEDS ORDERED: DIGOXIN INJ 0.25 MG/ML 2 ML AMP IV ONE (12:15)
--- NOTE | 2018-11-01 12:25 | NUR ---
MEDICATED PER MD ORDER WITH DIGOXIN,
--- NOTE | 2018-11-01 12:54 | NUR ---
REPORT TO ALEXANDRE RN, PT TRANSFERRED TO ICU ROOM 195, FAMILY AT SIDE
[2018-11-01] MEDS: AMIODARONE HCL 900 MG in DEXTROSE 5% 500ML 500 ML IV SCH (13:18)
--- NOTE | 2018-11-01 13:30 | NUR ---
received patient to room 195. aao3, calm, hr 140-170 afib. 22G started to left hand, amiodarone started at 1 mg/hr
--- NOTE | 2018-11-01 19:00 | NUR ---
Report received. Assumed care. Assessment done. See interventions. Dilaudid PASTER OPERATOR with demand setting only. Good pain control. NS @ 100ml/hr.
[2018-11-02] VITALS (18 sets, daily range): BP systolic 92–143; BP diastolic 47–111
--- NOTE | 2018-11-02 00:13 | Consultation ---
DATE OF CONSULTATION: November 01, 2018 CARDIOLOGY CONSULTATION REASON FOR CONSULTATION: Atrial fibrillation postoperative. HISTORY OF PRESENT ILLNESS: Ms. Villalobos is a 58-year-old lady with past medical history of diverticulosis and diverticulitis as well as a remote history of atrial septum surgical repair [address] Garcia at [facility]. Patient was in her usual state of health up until less than a week ago where she has been having progressively worsening left lower quadrant pain, malaise, nausea, and not feeling quite herself. She started reporting that the pain progressively worsened, started having subjective contraction-type feelings and then had ongoing pain to the left lower quadrant this weekend. She came into the hospital and was found to have diverticulitis with large abscess and fistulization involving left fallopian tube. She had to undergo a large extensive surgery to repair this where she had an exploratory laparotomy with Mark's pouch procedure as well as a left salpingo-oophorectomy and as well as bilateral ureteral stent placement for this diverticular abscess involving the left tubulo-ovarian region with fistulization. Patient is currently postop day #1. She reports that her pain is under control and is under a Dilaudid STEWARDESS SUPERVISOR. Patient denies any subjective fevers, on vitals has low-grade temp noted. On checking her vitals, she was noted to have rapid heart rate. Upon checking EKG, she was found to have atrial fibrillation with rapid ventricular response, however, is clinically asymptomatic from it. She denies any chest pain, pressure, tightness, heaviness, or problem difficulty breathing. Upon probing, patient does report a history of intermittent palpitations that occurs at night, but lasting several minutes at a time and does not think much of it. She has never been told she has had any atrial arrhythmias in the past and as far as she is aware this is the first mention of atrial fibrillation. Thus far, we have initiated her on IV amiodarone therapy and is moved to the ICU for closer observation. PAST SURGICAL HISTORY: History of surgical atrial septal defect repair with Dr. Garcia 20 years ago at [facility]. PAST MEDICAL HISTORY: History of diverticulitis. FAMILY HISTORY: Mother at 90 years of age with Alzheimer's. Father at 88, had cancer. There is no other family history of any medical issues. SOCIAL HISTORY: She is a lifelong nonsmoker. Denies any alcohol or illicit drug use. ALLERGIES: NO KNOWN DRUG ALLERGIES. AMBULATORY MEDICATIONS: 1. Dicyclomine 10 mg t.i.d. 2. Lactulose 1 tablet daily. 3. Protonix 40 mg daily. 4. Sertraline 150 mg p.o. nightly. REVIEW OF SYSTEMS: GENERAL: Denies any current fevers or chills. Denies any weight changes. HEENT: No headaches, visual complaints, sore throat, stuffy nose. RESPIRATORY: Denies any pleuritic chest pain or any cough or shortness of breath. CARDIOVASCULAR: Positive for history of ASD as noted above. Denies any dyspnea at the present time. Denies any subjective palpitations despite being in AFib currently. No orthopnea or leg swelling. GI: Positive for abdominal pain as per HPI. Underwent big surgery as noted above, is currently n.p.o. with NG tube in place. : Positive for recent cramping and some slight dysuria. MUSCULOSKELETAL: Denies any leg pain, swelling, cramping. HEMATOLOGY: Denies any bruising or bleeding. ID: Denies any history of infectious issues. NEUROLOGIC: Denies any focal weakness, numbness, tingling, seizures. Denies any history of TIA or stroke. Remainder of review of systems negative, otherwise mentioned. PHYSICAL EXAMINATION: VITAL SIGNS: Height of 61 inches, weight of 197 pounds. BMI is 37.3. Temperature of 99.4, pulse of 139, respiratory rate of 23, blood pressure 113/62, O2 sat 98% on 2 liters nasal cannula. GENERAL: This is a well-nourished, well-developed lady, who is in good spirits, currently in no apparent distress. HEENT: Normocephalic, atraumatic. Pupils are equal, round, and reactive to light. Extraocular movements are intact. Oropharynx is clear. There is an NG tube in place. NECK: No elevation of jugular venous pulsation. No carotid bruits. CARDIOVASCULAR: Irregularly irregular rate and rhythm. Normal S1 and S2. Soft 1/6 systolic murmur at left lower sternal border. LUNGS: Largely clear to auscultation bilaterally with good air entry. There is a right lateral thoracotomy scar that is old. ABDOMEN: Does have surgical wounds in place. There is a Mark's pouch in the mid to left lower quadrant. There are 2 WILFRID drains with serosanguineous output. BACK: No costovertebral angle tenderness. EXTREMITIES: Warm with 1+ to 2+ bilateral femoral pulses, 1+ pedal pulses. There is no edema. NEUROLOGIC: Cranial nerves II-XII are intact. Strength is 5/5 and grossly nonfocal. PSYCH: Normal fluent speech. Appropriate affect. No anxiety or delusions. LABS: White count is 14.8, hemoglobin 11.3, hematocrit 35.2, platelets of 412,000. Sodium 135, potassium 3.7, chloride 102, bicarb 24, BUN 7, creatinine 0.69, glucose of 113, calcium of 8.4. AST is 12, ALT 15, alk phos 127, total protein is 6.8, albumin of 2.9. UA shows 21 to 50 red cells, 3+ blood. Chest x-ray from the reveals postsurgical mediastinum without any acute pulmonary abnormalities. EKG reveals atrial fibrillation with rapid ventricular response and nonspecific ST-T-wave changes. DIAGNOSES: 1. Postoperative atrial fibrillation in the setting of a lady with known prior history of atrial septal defect surgical repair which makes her more predisposed to atrial arrhythmias. 2. Sepsis secondary to diverticulitis with fistula, status post extensive complex surgery including ureteral stent placement, left adnexal and oophorectomy as well as Mark's pouch placement. PLAN/RECOMMENDATIONS: 1. From a cardiovascular standpoint, we have initiated her on IV amiodarone therapy and believe this would be the best course of action to improve her likelihood of maintaining sinus rhythm. 2. Will try to maintain her electrolytes within normal range. 3. We have put her in ICU for now for close monitoring and adjustment of rate and rhythm control agents. 4. Postoperative surgical management per surgical service. 5. Agree with current IV antibiotic therapy for underlying infectious issues. 6. Will continue to follow this patient with you. Thank you for this referral. Job#: [id number] DR DALEY
[2018-11-02] MEDS: SODIUM CHLORIDE 0.9% 250ML IRRIG IR SCH ×6 (00:14→20:00)
[2018-11-02] MEDS: HYDROMORPHONE 0.2MG/ML-SOD CHL 30ML PCA SYRINGE IV PRN ×3 (00:25→20:00)
[2018-11-02 04:53] LABS: BASOPHILS # (AUTO) 0.1 (0.0-0.1); BASOPHILS % 0.3 % (0.0-1.0); EOSINOPHILS # (AUTO) 0.2 (0.0-0.4); EOSINOPHILS % 1.1 % (0.0-6.0); HEMATOCRIT 30.5 % (34.2-44.1); HEMOGLOBIN 10.2 g/dL (12.0-16.0); LYMPHOCYTES # (AUTO) 3.1 (1.0-3.2); LYMPHOCYTES % 17.2 % (18.0-39.1); MEAN CORPUSCULAR HEMOGLOBIN 30.4 pg (28-32); MEAN CORPUSCULAR HGB CONC 33.4 g/dL (31-35); MEAN CORPUSCULAR VOLUME 90.8 fL (81-99); MONOCYTES % 5.6 % (4.4-11.3); NEUTROPHILS # (AUTO) 13.4 (2.1-6.9); NEUTROPHILS % 75.1 % (38.7-80.0); PLATELET COUNT 358 x10e3/uL (140-360); RED BLOOD COUNT 3.36 x10e6/uL (3.6-5.1); RED CELL DISTRIBUTION WIDTH 13.4 % (11.7-14.4)
[2018-11-02 05:17] LABS: ANION GAP 12.4 mmol/L (8-16); BLOOD UREA NITROGEN 5 mg/dL (7-26); BUN/CREATININE RATIO 7 (6-25); CALCIUM 8.2 mg/dL (8.4-10.2); CARBON DIOXIDE 25 mmol/L (22-29); CHLORIDE 102 mmol/L (98-107); CREATININE, SERUM 0.72 mg/dL (0.57-1.11); EST GLOMERULAR FILTRATION RATE > 60 ML/MIN (60-); GLUCOSE 109 mg/dL (74-118); POTASSIUM 3.4 mmol/L (3.5-5.1); SODIUM 136 mmol/L (136-145)
[2018-11-02] MEDS: METRONIDAZOLE 500MG/NS 100ML 200 ML IV SCH ×3 (06:09→22:00)
[2018-11-02] MEDS ORDERED: AMIODARONE 900MG 500 ML IV ONE (06:38)
[2018-11-02] MEDS: AMIODARONE HCL 900 MG in DEXTROSE 5% 500ML 500 ML IV SCH (06:40)
[2018-11-02] MEDS ORDERED: POTASSIUM CHLORIDE 20MEQ/100ML 200 ML IV ONE (09:15)
[2018-11-02] MEDS: SODIUM CHLORIDE 0.9% 1000ML 1,000 ML IV SCH ×2 (10:26→18:18)
[2018-11-02] MEDS: PANTOPRAZOLE 40 MG 10ML VIAL IV SCH (10:26)
[2018-11-02] MEDS: POTASSIUM CHLORIDE 20MEQ/100ML 100 ML IV SCH ×2 (10:40→12:33)
--- NOTE | 2018-11-02 19:00 | NUR ---
Report received. Assumed care. Assessment done. See interventions. IV NS @ 100ml/hr. Dilaudid HOUSE NURSE with good pain control. Sitting up in chair at this time.
--- NOTE | 2018-11-02 19:30 | NUR ---
Returned to bed with two assist.
[2018-11-02] MEDS: CEFTRIAXONE SOD 2 GM/NS 100 ML 100 ML IV SCH (23:33)
[2018-11-03] VITALS (14 sets, daily range): BP systolic 91–159; BP diastolic 55–80
[2018-11-03] MEDS: SODIUM CHLORIDE 0.9% 1000ML 1,000 ML IV SCH ×4 (01:37→17:15)
[2018-11-03 05:05] LABS: BASOPHILS # (AUTO) 0.1 (0.0-0.1); BASOPHILS % 0.3 % (0.0-1.0); EOSINOPHILS # (AUTO) 0.2 (0.0-0.4); EOSINOPHILS % 1.4 % (0.0-6.0); HEMATOCRIT 30.2 % (34.2-44.1); HEMOGLOBIN 9.9 g/dL (12.0-16.0); LYMPHOCYTES # (AUTO) 2.8 (1.0-3.2); LYMPHOCYTES % 16.6 % (18.0-39.1); MEAN CORPUSCULAR HEMOGLOBIN 29.8 pg (28-32); MEAN CORPUSCULAR HGB CONC 32.8 g/dL (31-35); MONOCYTES # (AUTO) 0.8 (0.2-0.8); MONOCYTES % 4.5 % (4.4-11.3); NEUTROPHILS # (AUTO) 12.9 (2.1-6.9); NEUTROPHILS % 76.4 % (38.7-80.0); PLATELET COUNT 360 x10e3/uL (140-360); RED BLOOD COUNT 3.32 x10e6/uL (3.6-5.1); RED CELL DISTRIBUTION WIDTH 13.4 % (11.7-14.4)
[2018-11-03] MEDS: HYDROMORPHONE 0.2MG/ML-SOD CHL 30ML PCA SYRINGE IV PRN (05:12)
[2018-11-03 05:24] LABS: ANION GAP 12.7 mmol/L (8-16); BLOOD UREA NITROGEN 5 mg/dL (7-26); BUN/CREATININE RATIO 8 (6-25); CALCIUM 8.3 mg/dL (8.4-10.2); CARBON DIOXIDE 27 mmol/L (22-29); CHLORIDE 101 mmol/L (98-107); CREATININE, SERUM 0.65 mg/dL (0.57-1.11); EST GLOMERULAR FILTRATION RATE > 60 ML/MIN (60-); GLUCOSE 124 mg/dL (74-118); POTASSIUM 3.7 mmol/L (3.5-5.1); SODIUM 137 mmol/L (136-145)
[2018-11-03] MEDS: METRONIDAZOLE 500MG/NS 100ML 200 ML IV SCH ×3 (05:58→22:40)
--- NOTE | 2018-11-03 07:15 | NUR ---
Patient received awake, alert and Ox4. Respirations are even and unlabored. Denies any pain at this time. On Dilaudid LIBRARY DIRECTOR pump on demand only and tolerating well. at bedside. Monitor shows A-Fib with heart rate of 108. Other vital signs are stable. Abdominal dressing is dry and intact. Two WILFRID drains draining sanguinous fluid from abdominal sites. Left colostomy bag also draining sanguinous fluid of small amount.
[2018-11-03] MEDS: PANTOPRAZOLE 40 MG 10ML VIAL IV SCH (08:50)
--- NOTE | 2018-11-03 10:10 | NUR ---
Dr. Sangeetha Troy here at bedside
--- NOTE | 2018-11-03 11:10 | NUR ---
Patient's rhythm now in NSR-86. Daughter and son at bedside. Patient denies any pain or discomfort at this time. V/S are stable. Patient repositioned earlier and tolerated well.
[2018-11-03] MEDS: METOPROLOL TARTRATE INJ 1 MG/ML VIAL IV SCH ×3 (12:00→23:39)
--- NOTE | 2018-11-03 15:31 | NUR ---
Nutrition Screen Note RD Recommendation for Physician: -Rec advancing to GI soft diet as medically feasible -If GI is not ok to use within 48hr, rec to start PN -Consult RD for PN rec Plan of Care: RD following, monitoring for tolerance and adequacy Nutrition reason for involvement: LOS, Diet: NPO/ clear liquid x 5 days Primary Diagnose(s): 1. Diverticular disease of the colon. 2. Possible abscess. 3. Pelvic mass. PMH: diverticulosis and diverticulitis Ht: 61in Wt: 197.5lb BMI: 37.3kg/m2 IBW: 105lb RD Assessment: (11/03) Chart reviewed. Labs and meds reviewed. 58yo F, who is admitted for abdominal pain. Pt underwent exploratory laparotomy with Mark's pouch procedure as well as a left salpingo-oophorectomy and as well as bilateral ureteral stent placement for this diverticular abscess involving the left tubulo-ovarian region with fistulization. POD #3. NGT was removed. Pt has been on NPO/ clear liquid x 5 days Visited pt in the room. Pt reports some abdominal discomfort but no nausea or vomiting. No flatus reported. No recent weight loss reported. UBW ~190lbs. Communicated RD recommendation to RN on duty. Will continue to monitor and follow Current Diet: NPO Malnutrition Evaluation (11/03/18) The patient does not meet criteria for a specified degree of malnutrition at this time. Will re-evaluate at follow-up as appropriate. Energy intake: <50% of estimated energy requirements for >5 days Weight loss: None Fat loss: None Muscle loss: None Supporting Evidence: Fluid accumulation: unable to evaluate Functional Status: no changes Diet Education Needs Assessment: Diet education not indicated. Nutrition Care Level: mod Signed: Alejandra Mason, MS, RD, LD
[2018-11-03] MEDS ORDERED: HYDROMORPHONE 1MG/1ML INJ IV PRN (17:15)
[2018-11-03] MEDS: PIPER-TAZ 3.375 GM 50 ML IV SCH ×2 (19:00→23:39)
[2018-11-03] MEDS: AMIODARONE HCL 900 MG in DEXTROSE 5% 500ML 500 ML IV SCH (20:53)
[2018-11-03] MEDS: HYDROMORPHONE 2MG/ML 2 MG/ML ML IV PRN (22:53)
[2018-11-04] VITALS (16 sets, daily range): BP systolic 120–162; BP diastolic 63–79
[2018-11-04] MEDS: SODIUM CHLORIDE 0.9% 1000ML 1,000 ML IV SCH ×2 (04:13→19:55)
[2018-11-04] MEDS: METOPROLOL TARTRATE INJ 1 MG/ML VIAL IV SCH ×2 (05:58→12:00)
[2018-11-04] MEDS: METRONIDAZOLE 500MG/NS 100ML 200 ML IV SCH ×3 (05:58→21:14)
[2018-11-04] MEDS: PIPER-TAZ 3.375 GM 50 ML IV SCH ×3 (06:10→17:03)
--- NOTE | 2018-11-04 07:15 | NUR ---
PATIENT RECEIVED ASLEEP AND IS RESTING COMFORTABLY WITHOUT ANY SIGNS OF PAIN OR DISTRESS. AWAKENS WHEN CALLED BY NAME. AT BEDSIDE. MONITOR READS ATRIAL FLUTTER-78. DENIES ANY PAIN AT THIS TIME. ABDOMINAL DRESSING IS DRY AND INTACT. WILFRID DRAINS DRAINING SMALL AMOUNT OF SANGUINOUS FLUID. LEFT COLOSTOMY BAG INTACT AND DRAINING SMALL AMOUNT OF SANGUINOUS FLUID.
[2018-11-04] MEDS: PANTOPRAZOLE 40 MG 10ML VIAL IV SCH (09:00)
--- NOTE | 2018-11-04 09:40 | NUR ---
PHYSICAL THERAPY HERE AND AMBULATING PATIENT DOWN THE ALTAMIRANO IN ICU AND SHE IS TOLERATING IT WELL.
--- NOTE | 2018-11-04 10:30 | NUR ---
PATIENT SITTING UP IN CHAIR AND TOLERATING WELL. DENIES ANY PAIN OR DISCOMFORT. MONITOR SHOWS NORMAL SINUS RHYTHM-78. V/S ARE STABLE. AND OTHER VISITORS AT BEDSIDE.
[2018-11-04] MEDS: AMIODARONE HCL 200 MG TAB PO SCH ×2 (11:35→17:02)
--- NOTE | 2018-11-04 12:50 | NUR ---
PATIENT TRANSFERRED TO ROOM 115 VIA WHEELCHAIR AND AT HER SIDE. TELEMETRY BOX APPLIED TO PATIENT BEFORE TRANSFER. DENIES ANY PAIN OR DISCOMFORT. AMIODARONE DRIP DISCONTINUED AT 12:15 AND PATIENT IS SHOWING NSR-76 ON MONITOR. RESPIRATIONS ARE EVEN AND UNLABORED. V/S ARE STABLE. REPORT CALLED TO VIBHA CHASE.
[2018-11-04] MEDS: HYDROMORPHONE 2MG/ML 2 MG/ML ML IV PRN ×2 (13:12→21:36)
--- NOTE | 2018-11-04 13:30 | NUR ---
Received patient from ICU, alert and responsive, VS-113/58, P75, Temp 97.7, [id number]% RA, medicated for pain after transfer from chair to bed, incision intact and Colostomy in place, WILFRID drain in place, will monitor as call light within reach, no resp distress, will monitor.
[2018-11-04] MEDS: METOPROLOL TARTRATE 25 MG TAB PO SCH (17:02)
--- NOTE | 2018-11-04 17:21 | NUR ---
Orders in place to re-insert Navarrete cath and increased Dilaudid PRN for break through pain. Navarrete cath inserted with a total of 600cc output. Will monitor.
--- NOTE | 2018-11-04 18:05 | NUR ---
Colostomy care and education initiated with patient, education information provided.
--- NOTE | 2018-11-04 19:10 | NUR ---
REPORT RECEIVED FROM OFF GOING NURSE, PT RESTING IN BED ALERT AND ORIENTED, TELEMETRY IN PLACE, AT BEDSIDE, IV INFUSING PER ORDER, CALL LIGHT IN REACH, INSTRUCTED TO CALL WITH NEEDS, DENIES NEEDS, AT THIS TIME WITH NO DISTRESS NOTED
[2018-11-05] VITALS (8 sets, daily range): BP systolic 139–157; BP diastolic 65–71
[2018-11-05] MEDS: PIPER-TAZ 3.375 GM 50 ML IV SCH ×4 (01:00→18:40)
--- NOTE | 2018-11-05 04:43 | NUR ---
PT RESTING IN BED ALERT AND ORIENTED, NO DISTRESS NOTED, IV INFUSING PER ORDER, BED LOCKED AND LOW, AT BEDSIDE, DENIES NEEDS, IV INFUSING PER ORDER, CALL LIGHT IN REACH, INSTRUCTED TO CALL WITH NEEDS
[2018-11-05 05:17] LABS: BASOPHILS # (AUTO) 0.1 (0.0-0.1); BASOPHILS % 0.6 % (0.0-1.0); EOSINOPHILS # (AUTO) 0.3 (0.0-0.4); EOSINOPHILS % 2.3 % (0.0-6.0); HEMATOCRIT 29.6 % (34.2-44.1); HEMOGLOBIN 9.7 g/dL (12.0-16.0); LYMPHOCYTES # (AUTO) 3.1 (1.0-3.2); LYMPHOCYTES % 25.3 % (18.0-39.1); MEAN CORPUSCULAR HEMOGLOBIN 29.9 pg (28-32); MEAN CORPUSCULAR HGB CONC 32.8 g/dL (31-35); MEAN CORPUSCULAR VOLUME 91.4 fL (81-99); MONOCYTES # (AUTO) 0.7 (0.2-0.8); MONOCYTES % 5.4 % (4.4-11.3); NEUTROPHILS # (AUTO) 8.1 (2.1-6.9); NEUTROPHILS % 65.3 % (38.7-80.0); PLATELET COUNT 344 x10e3/uL (140-360); RED BLOOD COUNT 3.24 x10e6/uL (3.6-5.1); RED CELL DISTRIBUTION WIDTH 13.2 % (11.7-14.4)
[2018-11-05 05:37] LABS: ANION GAP 12.6 mmol/L (8-16); BLOOD UREA NITROGEN 10 mg/dL (7-26); BUN/CREATININE RATIO 17 (6-25); CALCIUM 8.1 mg/dL (8.4-10.2); CARBON DIOXIDE 24 mmol/L (22-29); CHLORIDE 104 mmol/L (98-107); EST GLOMERULAR FILTRATION RATE > 60 ML/MIN (60-); GLUCOSE 95 mg/dL (74-118); POTASSIUM 3.6 mmol/L (3.5-5.1); SODIUM 137 mmol/L (136-145)
[2018-11-05] MEDS: METOPROLOL TARTRATE 25 MG TAB PO SCH ×2 (09:07→16:57)
[2018-11-05] MEDS: PANTOPRAZOLE 40 MG 10ML VIAL IV SCH (09:07)
[2018-11-05] MEDS: AMIODARONE HCL 200 MG TAB PO SCH ×2 (09:07→16:57)
--- NOTE | 2018-11-05 09:44 | NUR ---
Patient OOB and ambulated about 200 feet, some weakness per patient and back to room, sitting on chair and will monitor. colostomy patent with output of green consistency, Navarrete cath draining, dark, severo urine, call light within reach.
[2018-11-05] MEDS: HYDROMORPHONE 2MG/ML 2 MG/ML ML IV PRN ×2 (10:28→19:51)
[2018-11-05] MEDS: SODIUM CHLORIDE 0.9% 1000ML 1,000 ML IV SCH (10:35)
--- NOTE | 2018-11-05 13:04 | NUR ---
Patient started on full liquid diet and tolerating slowly, denies any N/V
[2018-11-05] MEDS: METRONIDAZOLE 500MG/NS 100ML 200 ML IV SCH ×2 (14:00→21:50)
--- NOTE | 2018-11-05 19:17 | NUR ---
PT IS RESTING IN BED. NO RESPIRATORY DISTRESS NOTED. BED IN THE LOWEST POSITION, LOCKED, AND CALL LIGHT WITHIN REACH. WILL CONTINUE TO MONITOR.
[2018-11-06] VITALS (7 sets, daily range): BP systolic 138–164; BP diastolic 62–77
[2018-11-06] MEDS: PIPER-TAZ 3.375 GM 50 ML IV SCH ×3 (00:01→13:10)
[2018-11-06] MEDS: HYDROMORPHONE 2MG/ML 2 MG/ML ML IV PRN ×2 (03:39→21:29)
[2018-11-06] MEDS: METRONIDAZOLE 500MG/NS 100ML 200 ML IV SCH ×2 (05:43→14:12)
--- NOTE | 2018-11-06 07:42 | NUR ---
patient resting in bed, Alert with no distress, call light in reach, markie drain is patent,intact, dressing intact on abdomen
[2018-11-06] MEDS: PANTOPRAZOLE 40 MG 10ML VIAL IV SCH (08:50)
[2018-11-06] MEDS: AMIODARONE HCL 200 MG TAB PO SCH (08:50)
[2018-11-06] MEDS: METOPROLOL TARTRATE 25 MG TAB PO SCH ×2 (08:51→17:31)
--- NOTE | 2018-11-06 11:30 | NUR ---
DCd ferris's catheter, and patient urinated without having any discomforts
--- NOTE | 2018-11-06 12:20 | NUR ---
Dr Zoey Meehan had rounds, took the markie drains off, changed abdominal dressing, changed colostomy bag, notified wound care person notified
--- NOTE | 2018-11-06 21:30 | NUR ---
PATIENT C/O PAIN TO THE ABDOMEN WITH PAIN SCORE #6, MEDICATED WITH DILAUDID ORDERED. CALL LIGHT WITHIN EASY REACH, INSTRUCTED TO CALL FOR ASSISTANCE UPON GETTING OUT OF THE BED DUE TO SIDE EFFECT FROM THE MEDICATION.
[2018-11-06] MEDS: SODIUM CHLORIDE 0.9% 1000ML 1,000 ML IV SCH (22:05)
[2018-11-07] VITALS: BP_SYST 140; BP_SYST 145; BP_DIAS 65; BP_DIAS 80
[2018-11-07] MEDS: PIPER-TAZ 3.375 GM 50 ML IV SCH ×3 (00:09→12:35)
[2018-11-07] MEDS: HYDROMORPHONE 2MG/ML 2 MG/ML ML IV PRN (02:05)
--- NOTE | 2018-11-07 02:06 | NUR ---
PATIENT ASSISTED TO THE RESTROOM TO VOID, SHE'S NOW BACK IN BED WITH CALL LIGHT WITHIN EASY REACH. SHE C/O PAIN TO THE ABDOMEN WITH PAIN SCORE #6, MEDICATED WITH DILAUDID ORDERED. INSTRUCTED TO CALL FOR ASSISTANCE UPON GETTING OUT OF THE BED.
[2018-11-07 04:00] VITALS: BP 149/71
--- NOTE | 2018-11-07 08:18 | NUR ---
patient sitting up in chair, tolerated with breakfast, colostomy bag is intact, abd dressing open to air , sutures are intact, not in any distress, call light in reach, instructed her to call for any assistance
[2018-11-07] MEDS: PANTOPRAZOLE 40 MG 10ML VIAL IV SCH (08:36)
[2018-11-07] MEDS: METOPROLOL TARTRATE 25 MG TAB PO SCH ×2 (08:37→17:28)
[2018-11-07 08:39] VITALS: BP 149/71
[2018-11-07 09:51] VITALS: BP 149/71
[2018-11-07 12:10] VITALS: BP 131/63
--- NOTE | 2018-11-07 12:42 | NUR ---
WOUND CARE CONSULTATION - INITIAL EVALUATION -Admitted for diverticulitis of large intestine with abscess involving left ovary 10/29/18. -Underwent surgery on Oct 31 2018 and underwent exploratory laparotomy, stent placement, and left salpingo-oophorectomy with placement of 2 WILFRID drains. - 11/06/18 - S/P WILFRID drain removal & initial ostomy changed performed by Helen Bernard - Wound Care Consulted for Ostomy Education and Mid Abdominal Incision Care. - Patient to discharge today Home with Home Health. - Spouse at bedside. - Ostomy management reviewed with special focus on periwound maintenance and care. - Resources provided for additional information and instructional videos. - Handouts Provided and reviewed for Loris Two Piece Pouch System. - Charles Product Reviewed: Ref# [id number] -Drainable Pouch Ref# [id number] -Barrier Flange with Tape - Incision to mid abdomen with sonal in place. No drainage noted and is open to air. - Incisional care reviewed. Patient and Spouse verbalized understanding. - Patient to Follow Up with Helen Bernard at his office next Nov. - Allowed ample time to review and ask questions. Verbalized understanding. Thank you for consulting with Wound Care. Addendum: 11/07/18 at 1259 by Manolo Dalal RN Amended: Links added.
--- NOTE | 2018-11-07 14:56 | NUR ---
CM SPOKE TO PATIENT AT BEDSIDE REGARDING HOME HEALTH FOR ASSISTED SERVICES FOR COLOSTOMY CARE TO START TUESDAY AND GET CHANGED 3 TIMES PRIOR TO DISCONTINUATION OF SERVICES. PATIENT AWARE OF ORDER AND CHOSE TO GO WITH A COMPANY WITHIN HER INSURANCE. PATIENT CHOSE [facility]. CLINICAL SENT TO: [facility]: (P) [phone] (F) [phone] PATIENT GIVEN CM CONTACT INFORMATION SO IF SHE HAS ANY QUESTIONS OR CONCERNS SHE CAN CONTACT . PATIENT ALSO INFORMED TO CALL IF COMPANY DOES NOT CALL TO SCHEDULE INITIAL VISIT BY TUESDAY.
[2018-11-07 16:18] VITALS: BP 160/72
[2018-11-07] MEDS ORDERED: INFLUENZA VIRUS VAC SPLIT INJ 0.5 ML SYR IM SCH (16:30)
[2018-11-07] MEDS ORDERED: METOPROLOL TART50 MG PO (16:41)
[2018-11-07] MEDS ORDERED: TYLENOL WITH C1 EACH PO ×2 (16:42→16:43)
[2018-11-07] MEDS ORDERED: PROMETHAZINE HC25 M1 PO (16:43)
--- NOTE | 2018-11-07 17:40 | NUR ---
rechecked BP 146/60, Pain 2/10 on abdomen, not in any distress
--- NOTE | 2018-11-07 18:09 | NUR ---
patient discharged home, emptied colostomy bag, abdominal dressing is intact, sutures remain intact, Mid line removed, no redness, infiltration or hematoma noted. Prescription given, patient aware about f/up appointments, at bedside taking her home, transported via wheelchair to [facility]
== END 2018-11-07 18:01 | disposition home or self-care (01) | DRG 854 ==
LOC: ER 19:43 → ERHOLD 23:29 → MED/SURG 10-30 11:57 → ICU 11-01 12:55 → MED/SURG 11-04 12:38
PROC: 0UT60ZZ Resection of Left Fallopian Tube, Open Approach (ICD-10-PCS; 2018-10-31)
PROC: 0UT10ZZ Resection of Left Ovary, Open Approach (ICD-10-PCS; 2018-10-31)
PROC: 0T788DZ Dilation of Bilateral Ureters with Intraluminal Device, Via Natural or Artificial Opening Endoscopic (ICD-10-PCS; 2018-10-31)
PROC: BT141ZZ Fluoroscopy of Kidneys, Ureters and Bladder using Low Osmolar Contrast (ICD-10-PCS; 2018-10-31)
PROC: 0DTN0ZZ Resection of Sigmoid Colon, Open Approach (ICD-10-PCS; principal; 2018-10-31 10:00)
PROC: 0D1N0Z4 Bypass Sigmoid Colon to Cutaneous, Open Approach (ICD-10-PCS; 2018-10-31 10:00)
PROC: 02HV33Z Insertion of Infusion Device into Superior Vena Cava, Percutaneous Approach (ICD-10-PCS; 2018-11-03)
DX: A41.9 Sepsis, unspecified organism (principal); K57.20 Diverticulitis of large intestine with perforation and abscess without bleeding; I97.191 Other postprocedural cardiac functional disturbances following other surgery; K63.2 Fistula of intestine; N82.4 Other female intestinal-genital tract fistulae; F17.210 Nicotine dependence, cigarettes, uncomplicated; R19.09 Other intra-abdominal and pelvic swelling, mass and lump; D64.9 Anemia, unspecified; E66.9 Obesity, unspecified; Z68.39 Body mass index [BMI] 39.0-39.9, adult; K21.9 Gastro-esophageal reflux disease without esophagitis
CPT/HCPCS: 36415; 71046; 74177; 74420; 80048; 80053; 81001; 85025; 87071; 87075; 87205; 88304; 88305; 88307; 88331; 93005; 93306; 96367; 96374; 96375; 96376; 97139; 99284; J0696; J1100; J1160; J1885; J1956; J2001; J2250; J2270; J2405; J2543; J3480; J7030; J7050; J7060; J7121; Q9967

== ENCOUNTER 2019-03-08 05:00 | Inpatient (IN) | payer BC ==
[2019-03-07 11:17] LABS: BASOPHILS # (AUTO) 0.1 (0.0-0.1); BASOPHILS % 0.9 % (0.0-1.0); EOSINOPHILS # (AUTO) 0.2 (0.0-0.4); EOSINOPHILS % 1.9 % (0.0-6.0); HEMATOCRIT 42.5 % (34.2-44.1); HEMOGLOBIN 14.3 g/dL (12.0-16.0); LYMPHOCYTES # (AUTO) 5.2 (1.0-3.2); LYMPHOCYTES % 49.4 % (18.0-39.1); MEAN CORPUSCULAR HEMOGLOBIN 29.4 pg (28-32); MEAN CORPUSCULAR HGB CONC 33.6 g/dL (31-35); MEAN CORPUSCULAR VOLUME 87.4 fL (81-99); MONOCYTES # (AUTO) 0.4 (0.2-0.8); MONOCYTES % 4.1 % (4.4-11.3); NEUTROPHILS # (AUTO) 4.5 (2.1-6.9); NEUTROPHILS % 43.5 % (38.7-80.0); PLATELET COUNT 425 x10e3/uL (140-360); RED BLOOD COUNT 4.86 x10e6/uL (3.6-5.1)
[2019-03-07 11:41] LABS: BILIRUBIN,URINE NEGATIVE (NEGATIVE); CLARITY,URINE CLEAR (CLEAR); COLOR,URINE YELLOW (YELLOW); KETONES,URINE NEGATIVE (NEGATIVE); LEUKOCYTE ESTERASE ,URINE MODERATE (NEGATIVE); NITRITE,URINE NEGATIVE (NEGATIVE); PROTEIN,URINE DIPSTICK 1+ (NEGATIVE); URINE UROBILINOGEN 0.2 mg/dL (0.2 - 1)
[2019-03-07 11:42] LABS: ANION GAP 13.1 mmol/L (8-16); BLOOD UREA NITROGEN 12 mg/dL (7-26); BUN/CREATININE RATIO 13 (6-25); CALCIUM 9.8 mg/dL (8.4-10.2); CARBON DIOXIDE 23 mmol/L (22-29); CHLORIDE 101 mmol/L (98-107); CREATININE, SERUM 0.94 mg/dL (0.57-1.11); EST GLOMERULAR FILTRATION RATE > 60 ML/MIN (60-); GLUCOSE 109 mg/dL (74-118); POTASSIUM 4.1 mmol/L (3.5-5.1); SODIUM 133 mmol/L (136-145)
[~2019-03-08] VITALS: Ht 154.9 cm; Wt 87.1 kg
[~2019-03-08 05:00] MED LIST changes: +DICYCLOMINE HCL10 MG PO; +METOPROLOL TART50 MG PO; +PANTOPRAZOLE SO40 MG PO; +PROMETHAZINE HC25 M1 PO; +TYLENOL WITH C1 EACH PO; +VSL#3 CAPSULE1 EACH PO; +ZOLOFT50 MG PO
[2019-03-08] MEDS ORDERED: D5W IV ONE (07:44)
[2019-03-08] MEDS ORDERED: CEFOXITIN IV ONE (07:44)
--- NOTE | 2019-03-08 08:03 | Pre Op History & Physical ---
CHIEF COMPLAINT: Colostomy closure. HISTORY OF PRESENT ILLNESS: The patient is a 58-year-old female, status post Mark procedures in October 2018, admitted for colostomy. Preop barium enema revealed scattered diverticula along the area of the proximal colon and no diverticula in the rectal stump, which is long. There are no lesions. The patient currently is asymptomatic. 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 She had breast biopsy and a Mark procedure as previously stated. PAST MEDICAL HISTORY: Negative. SOCIAL HISTORY: Does not drink. Does not smoke. FAMILY HISTORY: History of cancer of the breast. ALLERGIES: THE PATIENT HAS NO KNOWN ALLERGIES. MEDICATIONS: Active medications, sertraline. REVIEW OF SYSTEMS: Unremarkable. She denies any abdominal pain and rectal bleeding. PHYSICAL EXAMINATION: GENERAL: Reveals a 58-year-old female in no acute distress. HEAD, EYES, EARS, NOSE, AND THROAT: Unremarkable. LUNGS: Clear. HEART: Reveals regular sinus rhythm. ABDOMEN: Soft, nontender. There is a left-sided lower quadrant colostomy healing well and healed midline incision. EXTREMITIES: Reveal no clubbing, cyanosis, or edema. NEUROLOGIC: No motor or sensory deficits. PSYCHIATRIC: Normal mood. Normal affect. LABORATORY DATA: Reviewed. ASSESSMENT: Status post Mark procedure for perforated sigmoid diverticulitis in October 2018. PLAN: Exploratory laparotomy, colostomy takedown, and low anterior resection of the colon. MD KATIE Bowman/MARIO /[id number]
[2019-03-08] MEDS ORDERED: BACITRACIN ZINC 15 GM OINT ONE (11:45)
[2019-03-08] MEDS ORDERED: DIPHENHYDRAMINE HCL INJ 50 MG/ML VIAL IM PRN (12:30)
[2019-03-08] MEDS ORDERED: MORPHINE SULFATE 1 MG/ML 30ML PCA IV PRN ×2 (12:30→16:15)
[2019-03-08] MEDS ORDERED: HYDROMORPHONE 0.2MG/ML-SOD CHL 30ML PCA SYRINGE IV PRN (12:30)
[2019-03-08] MEDS ORDERED: ACETAMINOPHEN 1000 MG/100 ML IV PRN (12:30)
[2019-03-08] MEDS ORDERED: NALOXONE HCL INJ 0.4 MG/ML AMP IV PRN ×3 (12:30→16:15)
[2019-03-08] MEDS ORDERED: KETOROLAC TROMETHAMINE 30 MG/ML VIAL IV PRN (12:30)
[2019-03-08] MEDS ORDERED: ONDANSETRON HCL INJ 2MG/ML 2ML 2 MG/ML VIAL IV PRN ×2 (12:30)
[2019-03-08] MEDS ORDERED: METOCLOPRAMIDE HCL 10 MG/2ML VIAL IV PRN (12:30)
[2019-03-08] MEDS ORDERED: MORPHINE SULFATE 1 MG/ML 30ML PCA ONE (12:46)
--- NOTE | 2019-03-08 13:20 | NUR ---
RECEIVED TO RM AAOX3 NO DISTRESS NOTED, EDI PROGRAMMER ON DEMAND INSTRUCTED ON USAGE, DSG TO ABDOMEN C/D/I, WITH BINDER IN PLACE, IVF INFUSING TO L HAND 20G NO SS OF INFILTRATION NOTED, NO OTHER CO VOICED CALL LIGHT IN REACH WILL CONTINUE TO MONITOR
[2019-03-08] MEDS ORDERED: MIDAZOLAM HCL 2 MG/2 ML VIAL ONE (13:43)
[2019-03-08] MEDS ORDERED: FENTANYL CITRATE/PF 100MCG/2 ML INJ ONE (13:43)
--- NOTE | 2019-03-08 14:15 | Operative Report ---
DATE OF PROCEDURE: 03/08/2019 SURGEON: Vivek Meehan MD Rigid Proctosigmoidoscopy PREOPERATIVE DIAGNOSIS: Status post Mark's procedure for perforated sigmoid diverticulitis complicated on October 29, 2018. POSTOPERATIVE DIAGNOSIS: Status post Mark's procedure for perforated sigmoid diverticulitis complicated on October 29, 2018. PROCEDURES PERFORMED: End sigmoid colostomy take down, exploratory laparotomy, extensive lysis of adhesions, left sigmoid colectomy and [id number] functional end-to-end stapled anastomosis, rigid proctosigmoidoscopy. BISCUIT FACTORY WORKER: Dr. Ed Meehan. SECOND BAKER HELPER: LOLI Graves. ESTIMATED BLOOD LOSS: About 250 mL. DRAINS: Four Natalie drains, two in the wound and two in the colostomy site. COMPLICATIONS: None. INDICATION AND FINDINGS: This patient is a pleasant 58-year-old female, who had undergone in October 2018 emergency surgery for perforated sigmoid diverticulitis with extensive peritonitis. The patient now has been admitted for closure. Preoperatively, she had a barium enema that revealed multiple tics on the left side of the colon, transverse and ascending colon and there were no obvious tics on the rectal stump. Intraoperative findings were multiple adhesions from previous perforation of the colon and extensive lysis of adhesions had to be carried on. There was a long rectal stump and we were able to easily anastomose the transverse colon [id number] to the upper rectum in the area of the decussation of the fibers where everything was soft and pliable and there were no tics. DESCRIPTION OF PROCEDURE: With the patient lying on the operative table in a supine position and after administration of general endotracheal anesthesia, she was prepped and draped. She was first placed in the lithotomy position in [facility] for rigid procto. The rigid procto was performed about 15 to 20 cm. No lesions were seen. There was some return of barium that was suctioned out and the anus was dilated to about 2 fingerbreadths or less. We then prepped and draped for exploratory laparotomy with colostomy takedown and closure. We used white drapes and colostomy site was isolated from the main abdomen and incision. After we made an elliptical incision in the stoma, we mobilized the colostomy until we were able to deliver into the wound. A Betadine sponge was then removed that was placed in the lumen and then we went ahead and entered the abdomen superior to the umbilicus gaining access through the abdominal cavity. We had to lyse extensive adhesions mainly in the distal part of the small bowel and omental adhesions also were taken down. We then mobilized the left colon all the way up to the mid transverse colon including taking down of the splenic flexure. We went ahead and then continued the dissection distally until we found the rectal stump mobilized out of the pelvis and then we selected a point for transection along the decussation, where it was soft, pliable and free of any diverticula. The WARNER 75 stapler was used to transect the rectal stump proximal and then the colon was then transected after immobilization proximal to the splenic flexure on the left side of the transverse colon. Then, the blood supply to the colon was taken down using the EnSeal cautery instrument. Both ends were prepared for anastomosis [id number], which was performed by firing the WARNER 75 stapler. Anastomosis on both sides after the corners of the staple line were removed and then we fired the TA 60 to close the rent having made in the two ends of the colon to anastomose it to itself, then reinforced the staple line with 3-0 silk. The anastomosis was patent and viable. There was absolutely no tension. We copiously irrigated the abdominal cavity after ascertaining that there was no bleeding, no bowel injury and the sponge and instrument count were correct. We closed the colostomy site with a running 1 PDS from within the abdomen and then we closed the wound with 2 layers of 1 Vicryl for the peritoneum and 1 Vicryl for the fascia. The soft tissue was copiously irrigated and then we placed 2 [place] drains to drain the deeper subcutaneous and more superficial subcutaneous layers and brought them out through stab wound inferior to the incision and secured them with 3-0 silk. The skin was then closed using a combination of sonal and silk. Then, the main incision was isolated from the stoma site, which was then closed with interrupted 0-Vicryl for the anterior fascia and the soft tissues were closed using a combination of using 2-0 chromic and the skin was closed using silk. A couple of Natalie drain were placed to drain both the most superficial and deeper soft tissues layers and were brought out through a stab wound lateral to the incision and secured there with 3-0 silk. Sterile dressing was applied. The patient tolerated the procedure well, taken to the recovery room in stable condition. The family was informed of intraoperative findings and of the patient's status. MD KATIE Bowman/MARIO /[id number]
[2019-03-08 14:21] VITALS: BP 101/55
[2019-03-08] MEDS ORDERED: METOPROLOL TART25 MG PO (14:27)
--- NOTE | 2019-03-08 15:00 | NUR ---
R HAND 20G X 1 STICK TOLERATED WELL
[2019-03-08] MEDS: DEXTROSE 5%/LACTATED RINGERS 1,000 ML IV SCH (15:20)
[2019-03-08] MEDS: PANTOPRAZOLE 40 MG 10ML VIAL IV SCH (15:20)
[2019-03-08] MEDS: SODIUM CHLORIDE 0.9% 250ML IRRIG IR SCH ×3 (15:21→20:51)
[2019-03-08 15:40] VITALS: BP 101/55
[2019-03-08] MEDS ORDERED: PNEUMOCOCCAL VACCINE POLYVALENT 23 MCG/0.5 ML VIAL IM SCH (15:50)
[2019-03-08] MEDS: CEFOXITIN 1GM/ D5W 50ML 50 ML IV SCH ×2 (15:52→20:51)
[2019-03-08 16:15] VITALS: BP 121/63
[2019-03-08] MEDS ORDERED: ATROPINE SULFATE 1 MG/ML VIAL ONE (17:45)
[2019-03-08] MEDS ORDERED: ACETAMINOPHEN 1000 MG/100 ML IV ONE (17:45)
[2019-03-08] MEDS ORDERED: SEVOFLURANE INHAL SOLN 250 ML PEN BTL ONE (17:45)
[2019-03-08] MEDS ORDERED: NEOSTIGMINE 5 MG/5ML SYR ONE (17:45)
[2019-03-08] MEDS ORDERED: PROPOFOL IV EMULSION 10 MG/ML 20 ML VIAL ONE (17:45)
[2019-03-08] MEDS ORDERED: KETOROLAC TROMETHAMINE 30 MG/ML VIAL ONE (17:45)
[2019-03-08] MEDS ORDERED: ROCURONIUM BROMIDE 10 MG/ML 5ML VIAL ONE (17:45)
[2019-03-08] MEDS ORDERED: DEXAMETHASONE SOD PHOS INJ 4 MG/ML VIAL ONE (17:45)
[2019-03-08] MEDS ORDERED: LIDOCAINE HCL 2% LOCAL INJ 5 ML SDV VIAL INJ ONE (17:45)
[2019-03-08] MEDS ORDERED: ONDANSETRON HCL INJ 2MG/ML 2ML 2 MG/ML VIAL ONE (17:45)
--- NOTE | 2019-03-08 19:00 | NUR ---
RECEIVED PATIENT IN BEDSIDE REPORT. PATIENT RESTING IN BED AT THIS TIME. STATES PAIN IS AT A 5, STATES CERTIFIED PHARMACY TECH PUMP IS HELPING WITH PAIN. DRESSING TO ABD C/D/I. ABD BINDER IN PLACE. SCDS ON. NO OTHER COMPLAINTS OR NEEDS AT THIS TIME. BED LOCKED IN LOWEST POSITION, SIDE RAILSUPX2, CALL LIGHT IN REACH.
[2019-03-08 19:10] VITALS: BP 119/59
[2019-03-08 20:46] VITALS: BP 119/59
[2019-03-09] VITALS (7 sets, daily range): BP systolic 100–148; BP diastolic 50–68
[2019-03-09] MEDS: DEXTROSE 5%/LACTATED RINGERS 1,000 ML IV SCH ×3 (01:21→20:44)
[2019-03-09] MEDS: SODIUM CHLORIDE 0.9% 250ML IRRIG IR SCH ×6 (01:27→21:29)
--- NOTE | 2019-03-09 01:56 | NUR ---
SPOKE TO MD Zoey BROOKS CONCERNING CHANGE IN PATIENT'S URINE. YELLOW AND CLEAR AT 2100, 03/08/19. NOW NOTED TO BE PINK AND FULL OF SEDIMENT. NO NEW ORDERS RECEIVED. MD BROOKS STATES IT IS FINE AND TO KEEP PATIENT HYDRATED.
[2019-03-09] MEDS: CEFOXITIN 1GM/ D5W 50ML 50 ML IV SCH ×4 (05:20→21:29)
[2019-03-09 05:50] LABS: BASOPHILS % 0.2 % (0.0-1.0); EOSINOPHILS % 0.1 % (0.0-6.0); HEMATOCRIT 35.1 % (34.2-44.1); HEMOGLOBIN 12.1 g/dL (12.0-16.0); LYMPHOCYTES # (AUTO) 2.6 (1.0-3.2); LYMPHOCYTES % 17.9 % (18.0-39.1); MEAN CORPUSCULAR HEMOGLOBIN 30.3 pg (28-32); MEAN CORPUSCULAR HGB CONC 34.5 g/dL (31-35); MONOCYTES # (AUTO) 0.7 (0.2-0.8); MONOCYTES % 4.8 % (4.4-11.3); NEUTROPHILS # (AUTO) 11.3 (2.1-6.9); NEUTROPHILS % 76.7 % (38.7-80.0); PLATELET COUNT 340 x10e3/uL (140-360); RED BLOOD COUNT 3.99 x10e6/uL (3.6-5.1); RED CELL DISTRIBUTION WIDTH 13.1 % (11.7-14.4)
[2019-03-09 06:28] LABS: ANION GAP 10.4 mmol/L (8-16); BLOOD UREA NITROGEN 15 mg/dL (7-26); BUN/CREATININE RATIO 17 (6-25); CALCIUM 8.9 mg/dL (8.4-10.2); CARBON DIOXIDE 24 mmol/L (22-29); CHLORIDE 104 mmol/L (98-107); CREATININE, SERUM 0.89 mg/dL (0.57-1.11); EST GLOMERULAR FILTRATION RATE > 60 ML/MIN (60-); GLUCOSE 145 mg/dL (74-118); POTASSIUM 4.4 mmol/L (3.5-5.1); SODIUM 134 mmol/L (136-145)
--- NOTE | 2019-03-09 07:25 | NUR ---
PT RESTING IN BED AA0X3. PT FAMILY IS AT BEDSIDE () PT S/P EXP LAP 03/08, DRESSING COVERING ALL ANTERIOR ABD IS IN PLACE DRY AND INTACT, ABD BINDER IN PLACE FOR SUPPORT NG TO THE RIGHT NARE CONNECTED TO LIS (DRAINAGE ON CANISTER IS GREEN/BROWN IN COLOR) PT HAS A LEFT HAND 20 G WITH D5LR AT 100CC.HR . AND FRONT DESK CLERK PUMP WITH MORPHINE SITE IS CLEAN AND INTACT RIGHT HAND 20 SL PATENT AND DRY PT HAS A NORTH CATH IN PLACE DRAINING YELLOW/PINK URINE (ORDERS TO DC POST OP DAY 2) PT HAS SED IN PLACED CONNECTED TO PUMP WILL CONTINUE TO MONITOR PT CLOSELY, SIDE RAILSX2, BED WHEELS LOCKED ,CALL LIGHT IS WITHIN EASY REACH, INSTRUCTED TO CALL FOR ASSISTANCE IF NEEDED
--- NOTE | 2019-03-09 11:25 | NUR ---
REMOVED BASAL FROM COOLING PAN TENDER PUMP PER P UMAIR
[2019-03-09] MEDS: PANTOPRAZOLE 40 MG 10ML VIAL IV SCH (14:07)
--- NOTE | 2019-03-09 19:13 | NUR ---
received patient aaox3, stable condition. ngt to wall suction. roll cutter pump, button within reach. no needs voiced at this time. bed locked and in lowest position, call light within easy reach. will continue to monitor.
--- NOTE | 2019-03-09 19:45 | NUR ---
patient has low grade fever, received verbal orders from Dr. cande Meehan to continue IV acetaminophen. orders entered and implemented.
[2019-03-09] MEDS: MORPHINE SULFATE 1 MG/ML 30ML PCA IV PRN (19:48)
[2019-03-09] MEDS: ACETAMINOPHEN 1000 MG/100 ML IV PRN (19:55)
[2019-03-10] VITALS (9 sets, daily range): BP systolic 90–116; BP diastolic 51–76
[2019-03-10] MEDS: SODIUM CHLORIDE 0.9% 250ML IRRIG IR SCH ×6 (01:20→21:15)
[2019-03-10] MEDS: CEFOXITIN 1GM/ D5W 50ML 50 ML IV SCH ×2 (02:26→08:55)
[2019-03-10] MEDS: DEXTROSE 5%/LACTATED RINGERS 1,000 ML IV SCH ×2 (04:19→10:26)
[2019-03-10] MEDS: ACETAMINOPHEN 1000 MG/100 ML IV PRN (06:02)
--- NOTE | 2019-03-10 06:05 | NUR ---
ferris cath removed per MD orders, patient tolerated well. instructed to call for help for voiding, hat placed in restroom. patient verbalized understanding. patient has low grade fever, encouraged patient to use IS. patient verbalized understanding. will continue to monitor. bed locked and in lowest position, call light within easy reach.
--- NOTE | 2019-03-10 07:10 | NUR ---
PT RESTING IN BED AA0X3. PT FAMILY IS AT BEDSIDE () PT S/P EXP LAP 03/08, DRESSING COVERING ALL ANTERIOR ABD IS IN PLACE DRY AND INTACT, ABD BINDER IN PLACE FOR SUPPORT NG TO THE RIGHT NARE CONNECTED TO LIS (DRAINAGE ON CANISTER IS BROWN IN COLOR) PT HAS A RIGHT HAND 20 G WITH D5LR AT 100CC.HR . AND PRODUCTION MAINTENANCE TECHNICIAN PUMP WITH MORPHINE SITE IS CLEAN AND INTACT LEFT HAND 20 SL PATENT AND DRY NORTH REMOVED THIS AM , PT IS DUE TO VOID PT HAS SED IN PLACED CONNECTED TO PUMP WILL CONTINUE TO MONITOR PT CLOSELY, SIDE RAILSX2, BED WHEELS LOCKED ,CALL LIGHT IS WITHIN EASY REACH, INSTRUCTED TO CALL FOR ASSISTANCE IF NEEDED
[2019-03-10 09:16] LABS: BASOPHILS # (AUTO) 0.1 (0.0-0.1); BASOPHILS % 0.4 % (0.0-1.0); EOSINOPHILS # (AUTO) 0.3 (0.0-0.4); EOSINOPHILS % 1.5 % (0.0-6.0); HEMATOCRIT 31.6 % (34.2-44.1); HEMOGLOBIN 10.3 g/dL (12.0-16.0); LYMPHOCYTES # (AUTO) 3.7 (1.0-3.2); LYMPHOCYTES % 22.9 % (18.0-39.1); MEAN CORPUSCULAR HEMOGLOBIN 29.8 pg (28-32); MEAN CORPUSCULAR HGB CONC 32.6 g/dL (31-35); MEAN CORPUSCULAR VOLUME 91.3 fL (81-99); MONOCYTES # (AUTO) 0.9 (0.2-0.8); MONOCYTES % 5.3 % (4.4-11.3); NEUTROPHILS # (AUTO) 11.2 (2.1-6.9); NEUTROPHILS % 69.5 % (38.7-80.0); PLATELET COUNT 277 x10e3/uL (140-360); RED BLOOD COUNT 3.46 x10e6/uL (3.6-5.1); RED CELL DISTRIBUTION WIDTH 13.4 % (11.7-14.4)
[2019-03-10 09:20] LABS: ANION GAP 9.9 mmol/L (8-16); BLOOD UREA NITROGEN 9 mg/dL (7-26); BUN/CREATININE RATIO 11 (6-25); CALCIUM 8.5 mg/dL (8.4-10.2); CARBON DIOXIDE 26 mmol/L (22-29); CHLORIDE 102 mmol/L (98-107); CREATININE, SERUM 0.83 mg/dL (0.57-1.11); EST GLOMERULAR FILTRATION RATE > 60 ML/MIN (60-); GLUCOSE 128 mg/dL (74-118); POTASSIUM 3.9 mmol/L (3.5-5.1); SODIUM 134 mmol/L (136-145)
--- NOTE | 2019-03-10 10:30 | NUR ---
PT VOIDED INTO TOILET HAT.
--- NOTE | 2019-03-10 12:12 | NUR ---
SPOKE TO MD BROOKS REGARDING PT VS. TACHYCARDIA IN THE 130S AND BP DROPPING INTO THE LOW 90S NEW ORDERS RECEIVED Addendum: 03/10/19 at 1213 by Mireille Santos RN SPOKE TO MD BROOKS REGARDING PT VS. TACHYCARDIA IN THE 130S AND BP DROPPING INTO THE LOW 90S, ELEVATED WBC COUNT NEW ORDERS RECEIVED
[2019-03-10] MEDS ORDERED: LACTATED RINGER'S 500 ML IV ONE (12:15)
[2019-03-10] MEDS ORDERED: LACTATED RINGER'S 1,000 ML ONE (12:23)
[2019-03-10] MEDS ORDERED: LACTATED RINGER'S 500 ML INJ ONE (13:00)
[2019-03-10] MEDS: PIPER-TAZ 3.375 GM 50 ML IV SCH ×2 (13:07→17:30)
[2019-03-10] MEDS: METRONIDAZOLE 500MG/NS 100ML 100 ML IV SCH ×2 (13:56→22:00)
[2019-03-10] MEDS: PANTOPRAZOLE 40 MG 10ML VIAL IV SCH (13:57)
[2019-03-10] MEDS: MORPHINE SULFATE 1 MG/ML 30ML PCA IV PRN (16:36)
[2019-03-10] MEDS: METOPROLOL TARTRATE 25 MG TAB PO SCH (16:37)
--- NOTE | 2019-03-10 19:13 | NUR ---
spoke to md romulo cardenas about low output of 300cc. aware no orders received
[2019-03-10] MEDS: BISACODYL 10 MG SUPP PR SCH (22:00)
[2019-03-11] VITALS (7 sets, daily range): BP systolic 109–124; BP diastolic 56–60
[2019-03-11] MEDS: PIPER-TAZ 3.375 GM 50 ML IV SCH ×4 (00:43→17:33)
[2019-03-11] MEDS: DEXTROSE 5%/LACTATED RINGERS 1,000 ML IV SCH ×2 (00:43→12:34)
[2019-03-11] MEDS: SODIUM CHLORIDE 0.9% 250ML IRRIG IR SCH ×3 (00:43→08:41)
[2019-03-11] MEDS: METRONIDAZOLE 500MG/NS 100ML 100 ML IV SCH ×3 (07:06→21:49)
--- NOTE | 2019-03-11 07:20 | NUR ---
PT RESTING IN BED AA0X3. PT FAMILY IS AT BEDSIDE () PT S/P EXP LAP 03/08, DRESSING COVERING ALL ANTERIOR ABD IS IN PLACE DRY AND INTACT, ABD BINDER IN PLACE FOR SUPPORT NG TO THE RIGHT NARE CONNECTED TO LIS (DRAINAGE ON CANISTER IS YELLOW/MUCUS IN COLOR) PT HAS A RIGHT HAND 20 G WITH D5LR AT 100CC.HR . AND WATER TREATMENT PLANT MECHANIC PUMP WITH MORPHINE SITE IS CLEAN AND INTACT PT HAS SED IN PLACED CONNECTED TO PUMP WILL CONTINUE TO MONITOR PT CLOSELY, SIDE RAILSX2, BED WHEELS LOCKED ,CALL LIGHT IS WITHIN EASY REACH, INSTRUCTED TO CALL FOR ASSISTANCE IF NEEDED
[2019-03-11 08:15] LABS: BASOPHILS # (AUTO) 0.1 (0.0-0.1); BASOPHILS % 0.4 % (0.0-1.0); EOSINOPHILS # (AUTO) 0.4 (0.0-0.4); EOSINOPHILS % 2.8 % (0.0-6.0); HEMATOCRIT 29.3 % (34.2-44.1); HEMOGLOBIN 9.4 g/dL (12.0-16.0); LYMPHOCYTES # (AUTO) 2.8 (1.0-3.2); LYMPHOCYTES % 21.4 % (18.0-39.1); MEAN CORPUSCULAR HEMOGLOBIN 29.5 pg (28-32); MEAN CORPUSCULAR HGB CONC 32.1 g/dL (31-35); MEAN CORPUSCULAR VOLUME 91.8 fL (81-99); MONOCYTES # (AUTO) 0.7 (0.2-0.8); MONOCYTES % 5.6 % (4.4-11.3); NEUTROPHILS % 69.4 % (38.7-80.0); PLATELET COUNT 254 x10e3/uL (140-360); RED BLOOD COUNT 3.19 x10e6/uL (3.6-5.1); RED CELL DISTRIBUTION WIDTH 13.3 % (11.7-14.4)
[2019-03-11] MEDS: BISACODYL 10 MG SUPP PR SCH ×2 (08:41→21:00)
[2019-03-11] MEDS: METOPROLOL TARTRATE 25 MG TAB PO SCH ×2 (08:41→17:33)
[2019-03-11 08:55] LABS: ANION GAP 9.7 mmol/L (8-16); BLOOD UREA NITROGEN 7 mg/dL (7-26); BUN/CREATININE RATIO 8 (6-25); CALCIUM 8.5 mg/dL (8.4-10.2); CARBON DIOXIDE 27 mmol/L (22-29); CHLORIDE 99 mmol/L (98-107); CREATININE, SERUM 0.83 mg/dL (0.57-1.11); EST GLOMERULAR FILTRATION RATE > 60 ML/MIN (60-); GLUCOSE 116 mg/dL (74-118); POTASSIUM 3.7 mmol/L (3.5-5.1); SODIUM 132 mmol/L (136-145)
--- NOTE | 2019-03-11 10:47 | NUR ---
NG TUBE DC PER MD BROOKS ORDERS . PT TOLERATED WELL INFORMED PT SHE WILL NOW BE ON CLEAR LIQUID DIET PT VERBALIZED UNDERSTANDING
[2019-03-11] MEDS ORDERED: ACETAMINOPHEN 325 MG TAB PO PRN (12:15)
[2019-03-11] MEDS: MORPHINE SULFATE 1 MG/ML 30ML PCA IV PRN (12:35)
--- NOTE | 2019-03-11 16:05 | NUR ---
Visit made by the Spiritual Care Department Pastoral Visitor, Jareth Moraes. PV provided pastoral presence, hospitality, and supportive listening. Pastoral Visitor informed pt/family of the scope of Contact Finger Assembler Services and availability. RAMIREZ URIBE Radius Grinder Spiritual Care Department O: [phone] Pager: [phone] ([phone] number calling from)
[2019-03-11] MEDS: PANTOPRAZOLE 40 MG 10ML VIAL IV SCH (17:09)
--- NOTE | 2019-03-11 20:19 | NUR ---
Assessment done.ambulates with walker and stand by assistance.no resp.distress.no pain voiced.on tire specialist morphine.abd.dressing is dry.scd is placed.bed locked and in lowest position.phone and call light within reach.instructed to call for assistance as needed.
[2019-03-12] VITALS (7 sets, daily range): BP systolic 112–128; BP diastolic 54–65
[2019-03-12] MEDS: PIPER-TAZ 3.375 GM 50 ML IV SCH ×5 (00:01→23:50)
[2019-03-12] MEDS: DEXTROSE 5%/LACTATED RINGERS 1,000 ML IV SCH ×3 (00:01→17:18)
--- NOTE | 2019-03-12 03:00 | NUR ---
ON BIPAP.RESTING WELL .STABLE CONDITION.
[2019-03-12] MEDS: METRONIDAZOLE 500MG/NS 100ML 100 ML IV SCH ×3 (06:11→21:19)
--- NOTE | 2019-03-12 06:50 | NUR ---
Report given to the on coming rn.walking rounds done.stable condition.
[2019-03-12] MEDS: BISACODYL 10 MG SUPP PR SCH (08:00)
[2019-03-12] MEDS: METOPROLOL TARTRATE 25 MG TAB PO SCH ×2 (08:49→17:18)
[2019-03-12] MEDS ORDERED: PNEUMOCOCCAL VACCINE POLYVALENT 23 MCG/0.5 ML VIAL IM NR (09:00)
[2019-03-12] MEDS: PANTOPRAZOLE 40 MG 10ML VIAL IV SCH (14:28)
[2019-03-12] MEDS: MORPHINE SULFATE 1 MG/ML 30ML PCA IV PRN (15:00)
--- NOTE | 2019-03-12 19:30 | NUR ---
pt received. pt assessed. no ss of distress noted. discussed pain mngt poc. verbalized understanding. loom changer button within reach. abd drsg with binder cdi. will cont to follow poc. call koch within reach.
[2019-03-13] VITALS: BP 129/63
[2019-03-13] MEDS: DEXTROSE 5%/LACTATED RINGERS 1,000 ML IV SCH (02:19)
[2019-03-13 04:00] VITALS: BP 131/70
--- NOTE | 2019-03-13 04:23 | NUR ---
pt resting. no ss of distress noted. call koch within reach.
[2019-03-13] MEDS: PIPER-TAZ 3.375 GM 50 ML IV SCH ×2 (05:13→12:00)
[2019-03-13] MEDS: METRONIDAZOLE 500MG/NS 100ML 100 ML IV SCH (06:02)
--- NOTE | 2019-03-13 07:12 | NUR ---
pt asleep easily aroused , resp even and unlabored this time, pt easily aroused, pt able to make needs known, no c/o pain at this time, call light in reach, family member at bedside.
[2019-03-13 08:24] VITALS: BP 118/58
[2019-03-13] MEDS: METOPROLOL TARTRATE 25 MG TAB PO SCH (09:18)
[2019-03-13] MEDS ORDERED: HYDROCODONE/APAP 7.5MG-325MG 1 EA TAB PO PRN (09:45)
--- NOTE | 2019-03-13 10:00 | NUR ---
pt CUSTOMER SERVICE MANAGER pump is D/Hernandez at this time. no c/o pain.
--- NOTE | 2019-03-13 10:17 | Discharge Summary ---
ADMITTING DIAGNOSIS: Status post Mark procedure for complicated sigmoid diverticulitis with perforation and abscess formation in October 2018. DISCHARGE DIAGNOSIS: Status post Mark procedure for complicated sigmoid diverticulitis with perforation and abscess formation in October 2018. PROCEDURE PERFORMED DURING THIS HOSPITALIZATION: On 03/08/2019, exploratory laparotomy, left colon resection and stapled [id number] colocolic anastomosis. HISTORY OF PRESENT ILLNESS: The patient is an otherwise healthy female, who had undergone in October of this year the previously described procedure. The patient was admitted for colostomy reversal. Preoperatively, she had a barium enema that revealed no lesions. The patient underwent the procedure uneventfully. She was discharged home in stable condition on 03/13/2019, tolerating a regular diet well. Her drains have been advanced. The wound was clean. She will be followed up in my office two days following discharge to remove the drains. MD KATIE Bowman/MARIO /[id number]
--- NOTE | 2019-03-13 10:30 | NUR ---
pt ambulating in dia, no distress noted.
[2019-03-13 12:41] VITALS: BP 126/74
--- NOTE | 2019-03-13 15:44 | NUR ---
pt discharged home, pt has no c/o pain at this time no distress noted, pt iv site removed at this time, no swelling no redness to site , pt has prescription, pt and family member was educated on medication.
== END 2019-03-13 15:40 | disposition home or self-care (01) | DRG 336 ==
LOC: OR 05:00 → PACU V 12:24 → MED/SURG 13:50
PROVIDERS: ADMIT Surgery; ATTEND Surgery
PROC: 0DNU0ZZ Release Omentum, Open Approach (ICD-10-PCS; 2019-03-08)
PROC: 0DSL0ZZ Reposition Transverse Colon, Open Approach (ICD-10-PCS; principal; 2019-03-08 07:30)
PROC: 0DN80ZZ Release Small Intestine, Open Approach (ICD-10-PCS; 2019-03-08 07:30)
DX: Z43.3 Encounter for attention to colostomy (principal); E87.1 Hypo-osmolality and hyponatremia; K57.30 Diverticulosis of large intestine without perforation or abscess without bleeding; Z01.812 Encounter for preprocedural laboratory examination; Z95.1 Presence of aortocoronary bypass graft; K66.0 Peritoneal adhesions (postprocedural) (postinfection); K21.9 Gastro-esophageal reflux disease without esophagitis; F41.9 Anxiety disorder, unspecified
CPT/HCPCS: 36415; 80048; 81003; 85025; 86850; 86900; 88307; 90732; 96361; 96367; J0461; J0694; J1100; J1885; J2001; J2250; J2270; J2405; J2543; J7120; J7121

== ENCOUNTER → 2022-02-25 | Outpatient (CLI) | payer BC ==
[~2022-02-25] MED LIST changes: +METOPROLOL TART25 MG PO
== END ==
LOC: MAMMO 09:10
PROVIDERS: ATTEND Family Medicine
DX: Z12.31 Encounter for screening mammogram for malignant neoplasm of breast (principal)
CPT/HCPCS: 77067

== ENCOUNTER → 2023-03-16 | Outpatient (CLI) | payer SELFPAY | LOC: MAMMO 07:53 | PROVIDERS: ATTEND Family Medicine | DX: Z12.31 Encounter for screening mammogram for malignant neoplasm of breast (principal) | CPT/HCPCS: 77067 ==

== ENCOUNTER → 2024-02-02 | Outpatient (REF) | payer OTHER | LOC: DX 08:29 | PROVIDERS: ATTEND Surgery | DX: K57.90 Diverticulosis of intestine, part unspecified, without perforation or abscess without bleeding (principal) | CPT/HCPCS: 74280 ==

== ENCOUNTER → 2025-05-16 | Outpatient (REF) | payer MEDICARE | LOC: MAMMO 09:37 | PROVIDERS: ATTEND Surgery | DX: Z12.31 Encounter for screening mammogram for malignant neoplasm of breast (principal) | CPT/HCPCS: 77067 ==